=== PATIENT | female | born 1940 | race African-American/Black ===

== ENCOUNTER 2016-09-28 22:46 | Observation (INO) ==
--- NOTE | 2016-09-28 23:36 | PROVIDER DOCUMENTATION ---
HPI-Abdominal Pain/GI Problem - General Chief Complaint: Constipation Stated Complaint: CONSTIPATION Time Seen by Provider: 09/28/16 23:15 Source: patient Allergies/Adverse Reactions: Patient Allergies Allergy/AdvReac Type Severity Reaction Status Date / Time acetaminophen Allergy Intermediate ABDOMINAL Verified 10/05/12 20:30 [From Benadryl PAIN Allergy/Sinus/Headach] diphenhydramine Allergy Intermediate ABDOMINAL Verified 10/05/12 20:30 [From Benadryl PAIN Allergy/Sinus/Headach] diphenhydramine HCl * Allergy Intermediate ABDOMINAL Verified 10/05/12 20:30 [From Benadryl PAIN Allergy/Sinus/Headach] phenylephrine HCl * Allergy Intermediate ABDOMINAL Verified 10/05/12 20:30 [From Benadryl PAIN Allergy/Sinus/Headach] pseudoephedrine HCl * Allergy Intermediate ABDOMINAL Verified 10/05/12 20:30 [From Benadryl PAIN Allergy/Sinus/Headach] Home Medications: Losartan Potassium 100 mg PO DAILY 10/05/12 Sitagliptin Phosphate [Januvia] 100 mg PO DAILY 10/05/12 Atorvastatin Calcium [Lipitor] 40 mg PO QHS 04/29/16 Gabapentin 300 mg PO QHS 04/29/16 Hydrochlorothiazide 12.5 mg PO DAILY 04/29/16 Potassium Chloride E.r. [Klor-Con] 20 meq PO PRN PRN 09/28/16 - History of Present Illness-ABD Nature of Presenting Problems: 76 y/o AAF presents to the ED with constipation. Pt says her bowels have not moved in 4-5 days. Pt states it hurts to sit on her bottom because of the pressure on her rectum. Pt took some Mirlax today but still no BM. Abdominal Pain Onset Location: reports: generalized abdomen, other (rectum) Pain Radiation: reports: no radiation Quality of Pain: reports: tightness Severity in ED: reports: moderate, severe Onset/Duration: reports: 5 days ago Timing: reports: still present Modifying Factors: improves with: nothing Associated Symptoms: reports: constipation. denies: chest pain, loss of appetite, nausea, vomiting, trouble walking Review of Systems - Adult - REVIEW OF SYSTEMS - ADULT Constitutional: denies: chills, fever Eyes: reports: no symptoms reported Ears, Nose, Mouth & Throat: reports: no symptoms reported Cardiovascular: reports: no symptoms reported Respiratory: reports: no symptoms reported Gastrointestinal: reports: abdominal pain, constipation. denies: nausea, rectal bleeding Genitourinary: reports: no symptoms reported Musculoskeletal: reports: no symptoms reported Integumentary: reports: no symptoms reported Neurological: reports: no symptoms reported Psychiatric: reports: no symptoms reported Endocrine: reports: no symptoms reported Hematologic/Lymphatic: reports: no symptoms reported Allergic/Immunologic: reports: no symptoms reported All Other Systems: Reviewed and Negative Past History - Adult - PAST MEDICAL HISTORY-ADULT Review of Records: reports: Old Records Reviewed, Nursing Assessment Review, Medications Reviewed Physical Exam-General - PHYSICAL EXAM-ADULT Initial Vital Signs Reviewed: Yes - CONSTITUTIONAL General Appearance: appears well, alert, no apparent distress - EYES Eyes: PERRL/EOMI, pink conjunctivae - HEAD, EARS, NOSE, MOUTH & THROAT HENMT: moist mucous membranes, normal ENT inspection, TMs normal, pharynx normal - NECK Neck: non-tender, full range of motion, supple, normal inspection - RESPIRATORY Respiratory: lungs clear, normal breath sounds, no pleuratic chest pain, no respiratory distress, no accessory muscle use - CARDIOVASCULAR Cardiovascular: normal peripheral pulses, regular rate, rhythm - GASTROINTESTINAL (ABDOMEN) Abdominal Exam: normal bowel sounds, distended, rigid - MUSCULOSKELETAL Back Exam: normal inspection, no CVA tenderness, no vertebral tenderness Extremity: normal range of motion, non-tender, normal gait, normal inspection - SKIN Integumentary: normal color, normal turgor, warm/dry - NEUROLOGIC Neurologic: grossly normal, no motor/sensory deficits - PSYCHIATRIC Psych/Mental Status: normal mood/affect, normal thought content, normal thought process, oriented x 3 Progress - PLAN OF CARE/RESULTS Progress/Plan/Lab Results: Orders Category Date Time Status Saline Loc DIRECTED Care 09/28/16 23:13 Active Soap Suds Enema DIRECTED Care 09/29/16 00:34 Active NPO Diet 09/28/16 23:[address] ABD/PELVIS W/ IV CONT ONLY [CT] Stat Exams 09/29/16 00:33 Taken FLAT/UPRIGHT ABD/1 VIEW CHEST [RAD] Stat Exams 09/29/16 00:00 Taken AMYLASE [CHEM] Stat Lab 09/28/16 23:27 Completed CBC WITH ELECTRONIC DIFF [HEME] Stat Lab 09/28/16 23:27 Completed COMPREHENSIVE METABOLIC PANEL [CHEM] Stat Lab 09/28/16 23:27 Completed LIPASE [CHEM] Stat Lab 09/28/16 23:[address] W/POSS RFLX CULT [URINALYSIS] Stat Lab 09/29/16 00:55 Completed URINE CULTURE [RM] Routine Lab 09/29/16 01:22 Ordered 0.9% Sodium Chloride Inj [Ns] 1,000 ml Med 09/29/16 00:34 Discontinued IV 999 mls/hr Acyclovir [Zovirax Liquid] Med 09/29/16 00:49 Discontinued 400 mg .ROUTE .STK-MED ONE Bisacodyl [Dulcolax] Med 09/28/16 23:48 Discontinued 10 mg .ROUTE .STK-MED ONE Bisacodyl [Dulcolax] Med 09/28/16 23:46 Discontinued 10 mg NE NOW ONE Docusate Sodium [Colace Liquid] Med 09/29/16 00:35 Discontinued 200 mg PO NOW ONE Methylnaltrexone [Relistor] Med 09/29/16 00:34 Discontinued 12 mg SUBQ NOW ONE Morphine Med 09/29/16 00:33 Discontinued 4 mg IV NOW ONE Promethazine [Phenergan] Med 09/29/16 00:33 Discontinued 12.5 mg IV NOW ONE Sodium Chloride 0.9% Med 09/29/16 00:33 Discontinued 10 ml INJ NOW ONE Vital Signs Temp Pulse Resp BP Pulse Ox 09/28/16 22:52 98.8 F 88 18 137/91 100 acetaminophen [From Benadryl Allergy/Sinus/Headach] Allergy (Intermediate, Verified 10/05/12 20:30) ABDOMINAL PAIN diphenhydramine [From Benadryl Allergy/Sinus/Headach] Allergy (Intermediate, Verified 10/05/12 20:30) ABDOMINAL PAIN diphenhydramine HCl * [From Benadryl Allergy/Sinus/Headach] Allergy ( Intermediate, Verified 10/05/12 20:30) ABDOMINAL PAIN phenylephrine HCl * [From Benadryl Allergy/Sinus/Headach] Allergy (Intermediate , Verified 10/05/12 20:30) ABDOMINAL PAIN pseudoephedrine HCl * [From Benadryl Allergy/Sinus/Headach] Allergy ( Intermediate, Verified 10/05/12 20:30) ABDOMINAL PAIN Losartan Potassium 100 mg PO DAILY 10/05/12 Sitagliptin Phosphate [Januvia] 100 mg PO DAILY 10/05/12 Atorvastatin Calcium [Lipitor] 40 mg PO QHS 04/29/16 Gabapentin 300 mg PO QHS 04/29/16 Hydrochlorothiazide 12.5 mg PO DAILY 04/29/16 Potassium Chloride E.r. [Klor-Con] 20 meq PO PRN PRN 09/28/16 Dietary Diet NPO Start WedSep 28 [id number] Laboratory 09/28/16 09/28/16 09/28/16 23:30 23:27 23:27 WBC 5.53 RBC 3.95 L Hgb 11.3 L Hct 36.1 L MCV 91.4 MCH 28.6 MCHC 31.3 L RDW Std Deviation 14.2 Plt Count 273 MPV 10.0 Immature Gran % (Auto) 0.2 Neut % (Auto) 46.4 Lymph % (Auto) 40.0 [place] % (Auto) 10.3 H Eos % (Auto) 2.9 Baso % (Auto) 0.2 Immature Gran # (Auto) 0.01 Neut # (Auto) 2.57 Lymph # (Auto) 2.21 [place] # (Auto) 0.57 Eos # (Auto) 0.16 Baso # (Auto) 0.01 Sodium 137 Potassium 4.0 Chloride 101 Carbon Dioxide 29 Anion Gap 8 BUN 20 Creatinine 1.1 H Estimated GFR/1.73 m2 48 BUN/Creatinine Ratio 18 Glucose 132 H Calculated Osmolality 278 Calcium 10.4 H Total Bilirubin 0.40 AST 18 ALT 10 Alkaline Phosphatase 75 Total Protein 7.7 Albumin 4.3 Globulin 3.0 Albumin/Globulin Ratio 1.0 Amylase 110 Lipase 38 Urine Source CLEAN CATCH Urine Color YELLOW Urine Clarity CLEAR Urine pH 5.0 Ur Specific [place] 1.020 Urine Protein TRACE A Urine Ketones NEGATIVE Urine Blood NEGATIVE Urine Nitrite NEGATIVE Urine Bilirubin NEGATIVE Urine Urobilinogen NORMAL Urine Microscopic RBC <10 Urine WBC 2+ A Urine Microscopic WBC 10-20 A Ur Epithelial Cells <10 Urine Bacteria 2+ Urine Glucose NEGATIVE - CT/MRI 1 CT Study: Abdomen, Pelvis Impression: Normal (No bowel obstruction per Dr Figueroa) CT Results: Rectal wall thickening, likely rpreents infection, no abscess - CONSULTS/PCP/HOSPITALIST Notification #1 *Consult/PCP/Hospitalist*: Dr Dutton Time Discussed: 03:04 Reason/Comments: admission Consult Disposition: Admit (accepts) Departure - Departure Time of Disposition Order: 03:05 DIAGNOSIS: Constipation Qualifiers: Constipation type: unspecified constipation type Qualified Code(s): K59.00 - Constipation, unspecified Disposition: ADMITTED INPATIENT 09 Certified Medical Emergency: Emergent Condition: Stable Additional Instructions: ED Follow Up Instructions: You have been treated by a care provider in the Emergency Department. These instructions are being provided to you so you can have an understanding of how to care for yourself upon discharge. Upon discharge from the Emergency Department, you are responsible for making arrangements for follow-up care by a physician of your choice. Take all prescribed medications as directed. Return to the Emergency Department immediately for any new or worsening symptoms. You may call the Physician Referral phone number at [phone] to obtain a list of Physicians who are taking new patients. Attestation - Scribe Verification/Attestation Scribe:: Denilson Maguire Acting as Scribe for:: Jensen Sánchez Scribe documention review:: This chart was documented by a scribe and accurately reflects the service the provider performed and the decisions made by the provider. - Physician/ Mid-level Attestation Patient care was provided by Mid-level provider (ROLL HAULER/PA):: Yes Mid-level provider:: Jensen Sánchez Mid-level documentation review:: The Mid-level provider documentation, treatment plan and medical decision making was reviewed by the physician who agrees with all treatment and medical decision making by the MLP.
[2016-09-28 23:45] LABS: MANUAL DIFF NEEDED? NO
[2016-09-28] MEDS ORDERED: DULCOLAX PR ONE (23:46)
[2016-09-28 23:48] LABS: BASO% 0.2 % (0.0-0.8); EOS# 0.16 X1000 (0.0-0.7); EOS% 2.9 % (0.0-10.0); HEMATOCRIT 36.1 % (37.0-47.0); HEMOGLOBIN 11.3 g/dL (12.0-16.0); IMM GRAN# 0.01 X1000 (0.0-0.04); IMM GRAN% 0.2 % (0.0-0.5); LYMPH# 2.21 X1000 (1.2-3.4); MCH 28.6 PG (27-31); MCHC 31.3 g/dL (33-37); MCV 91.4 FL (81-99); MONO# 0.57 X1000 (0.11-0.59); MONO% 10.3 % (1.7-9.3); NEUT% 46.4 % (42.2-75.2); PLT 273 X1000 (130-400); RBC 3.95 XMIL (4.2-5.4)
[2016-09-28] MEDS ORDERED: DULCOLAX ONE (23:48)
[2016-09-29 00:12] LABS: ALBUMIN 4.3 g/dL (3.5-5.0); CALCIUM 10.4 mg/dL (8.8-10.2); TOTAL BILIRUBIN 0.4 mg/dL (0.20-1.00); TOTAL PROTEIN 7.7 g/dL (6.3-8.3)
[2016-09-29] MEDS ORDERED: PHENERGAN IV ONE (00:33)
[2016-09-29] MEDS ORDERED: MORPHINE IV ONE (00:33)
[2016-09-29] MEDS ORDERED: SODIUM CHLORIDE 0.9% INJ ONE (00:33)
[2016-09-29] MEDS ORDERED: NS 1,000 ML IV ONE (00:34)
[2016-09-29] MEDS ORDERED: RELISTOR SUBQ ONE (00:34)
[2016-09-29] MEDS ORDERED: COLACE LIQUID PO ONE (00:35)
[2016-09-29] MEDS ORDERED: ZOVIRAX ONE (00:49)
[2016-09-29 00:59] LABS: URINE SOURCE CLEAN CATCH
[2016-09-29 01:21] LABS: BILIRUBIN URINE NEGATIVE (NEGATIVE); BLOOD URINE NEGATIVE (NEGATIVE); CLARITY CLEAR (CLEAR); COLOR YELLOW; GLUCOSE URINE NEGATIVE (NEGATIVE); LEUKOCYTES URINE 2+ (NEGATIVE); NITRITE URINE NEGATIVE (NEGATIVE); PROTEIN URINE TRACE mg/dL (NEGATIVE); UROBILINOGEN URINE NORMAL
[2016-09-29 01:22] LABS: URINE CULTURE PL NEEDED? YES; URINE EPITHELIAL CELLS <10 /HPF (<10); URINE RBC <10 /HPF (<10)
[2016-09-29] MEDS ORDERED: ZOFRAN IV PRN (03:07)
[2016-09-29] MEDS ORDERED: KLOR-CON PO PRN (03:10)
[2016-09-29] MEDS ORDERED: FLAGYL PO ONE (03:12)
[2016-09-29] MEDS ORDERED: HEPARIN 25,000 UNIT in NS 250 ML IV SCH (05:30)
--- NOTE | 2016-09-29 06:36 | Diag Imaging Result Document ---
PROCEDURE NAME: FLAT/UPRIGHT ABD/1 VIEW CHEST - 09/29/2016 FLAT AND UPRIGHT AND CHEST, THREE VIEWS: COMPARISON: The chest is compared to 05/03/2016. FINDINGS: The patient has a right-sided [id number]. No pneumothorax. There are surgical clips in the left axilla and there has been prior surgery to the right clavicle. No pneumonia. No free air beneath the diaphragm. There is stool throughout the colon. The bowel loops are not dilated. No organomegaly. Mild scoliosis. No abnormal abdominal or pelvic calcifications. IMPRESSION: Constipation.
--- NOTE | 2016-09-29 06:48 | Diag Imaging Result Document ---
PROCEDURE NAME: CT ABD/PELVIS W/ IV CONT ONLY - 09/29/2016 CT ABDOMEN AND PELVIS WITH INTRAVENOUS CONTRAST: TECHNIQUE: Dose-reduction protocol. COMPARISON: No comparison films. FINDINGS: The heart is mildly prominent. The lung bases are clear. The spleen is not enlarged. Normal pancreas, gallbladder, liver, and adrenal glands. A 2.5 cm cyst is found in the mid right kidney. No other renal abnormalities. No hydronephrosis. Moderate atherosclerosis. No aneurysmal dilatation to the abdominal aorta. No bowel obstruction. No inflammation about the cecum. There is only a small amount of stool throughout the colon. There is mild thickening to the rectum. No distinct mass. The uterus has been removed. No pelvic mass. The urinary bladder is moderately distended and appears normal. No enlarged lymph nodes. IMPRESSION: 1. Proctitis. 2. Hysterectomy. 3. Right renal cyst. A preliminary report was given at 1:51 a.m.
[2016-09-29] MEDS: NS 1,000 ML IV SCH ×2 (07:50→19:43)
[2016-09-29] MEDS ORDERED: AUGMENTIN PO SCH (09:00)
[2016-09-29] MEDS ORDERED: JANUVIA PO SCH (09:00)
[2016-09-29] MEDS ORDERED: COZAAR PO SCH (09:00)
[2016-09-29] MEDS ORDERED: COLACE PO SCH (09:00)
[2016-09-29] MEDS ORDERED: HYDROCHLOROTHIAZIDE PO SCH (09:00)
[2016-09-29] MEDS ORDERED: CITRATE OF MAGNESIA PO ONE (09:25)
[2016-09-29] MEDS: DULCOLAX PR SCH ×2 (12:29→16:37)
[2016-09-29 15:47] VITALS: BP 127/60
--- NOTE | 2016-09-29 16:47 | Diag Imaging Result Document ---
PROCEDURE NAME: KUB ABDOMEN - 09/29/2016 AP SUPINE ABDOMEN: COMPARISON: Compared with the previous abdominal series from today (09/29/2016). FINDINGS: There has been interval substantial decrease in retained fecal debris in the colon, consistent with improved constipation. There is gas visible in mostly nondistended colon and small bowel. There is mild gaseous distention of the stomach. There is no other substantial gaseous bowel distention identified. IMPRESSION: Substantial improvement in constipation compared to prior. Mild gaseous distention of stomach. Nonspecific bowel gas pattern otherwise.
--- NOTE | 2016-09-29 17:15 | HISTORY AND PHYSICAL ---
CHIEF COMPLAINT: Constipation. HISTORY OF PRESENT ILLNESS: This is a 76-year-old female who presented to that in the emergency room complaining of constipation. She stated that she had a bowel movement in the past 4-5 days. She does feel some significant pressure in her rectum when sitting. She did take MiraLAX earlier today prior to coming to the emergency room, although she has had no results. She denied any nausea or vomiting, decreased appetite, change in her p.o. intake. PAST MEDICAL HISTORY: Hypertension. Insulin-dependent diabetes. Peripheral neuropathy. Vitamin B12 deficiency. Hyperlipidemia. History of breast cancer and osteoarthritis. SOCIAL HISTORY: She denies alcohol, tobacco, or illicit drug use. ALLERGIES: Tylenol and Benadryl. HOME MEDICATIONS: Losartan 100 mg daily. Hydrochlorothiazide 12.5 daily. Gabapentin 300 at bedtime. Lipitor 40 at bedtime. Januvia 100 daily. Klor-Con 20 p.r.n. REVIEW OF SYSTEMS: A 14 point review of systems is discussed with patient with pertinent positives stated in HPI. She denies chest pain, palpitations, dizziness, syncope, nausea, vomiting, diarrhea, black or bloody vomitus, black or bloody stools, hematuria, dysuria, frequency, urgency. Any shortness of breath, PND, orthopnea. PHYSICAL EXAMINATION: GENERAL: This is a 76-year-old female, sitting up in the bed with no distress. VITAL SIGNS: Blood pressure is 124/62 with a heart rate of 73, respirations are 18, temperature is 97.7 degrees oral with room air saturation 97%. HEENT: Head is normocephalic, atraumatic. Pupils equal, round, react to light. EOMs are intact. Sclerae anicteric. Mucous membranes are moist. NECK: Supple with trachea midline. CARDIOVASCULAR: Regular rate and rhythm, S1, S2 appreciated. GASTROINTESTINAL: Abdomen is soft, nontender, nondistended with bowel sounds in all 4 quadrants. BACK: No CVAT. No spine tenderness. MUSCULOSKELETAL: Good range of motion of joints. NEUROLOGIC: She is alert and oriented x3. EXTREMITIES: No clubbing, cyanosis, or edema. Calves are nontender. Pulses are palpable x4. LABORATORY: WBC is 5.53 with a hemoglobin of 11.3, hematocrit 36.1, platelets of 273,000. Sodium is 137, potassium 4, BUN 20, creatinine 1.1 with a glucose of 132. IMAGING: Abdominal x-ray reveals no bowel obstruction. CT of the abdomen and pelvis reveals proctitis, hysterectomy and a right renal cyst. ASSESSMENT AND PLAN: 1. Constipation. 2. Diabetes mellitus. 3. Hypertension. 4. History of breast cancer. 5. Peripheral neuropathy. PLAN: She has been admitted to the hospital. We will continue with IV hydration. We will continue with her current regimen. We will add Dulcolax rectal suppositories every 6 hours for 3 doses as well as a bottle of Magnesium Citrate. The patient states that she has had 2 small bowel movements. We will repeat Dictated by MILTON Pires for Ancelmo Schultz MD
[2016-09-29] MEDS ORDERED: LIPITOR PO SCH (21:00)
[2016-09-29] MEDS ORDERED: NEURONTIN PO SCH (21:00)
== END 2016-09-29 20:40 | disposition home or self-care (01) ==
LOC: P.ED 22:46 → P.MEDSURG 09-29 03:11
PROVIDERS: ATTEND Family Medicine
DX: K59.00 Constipation, unspecified (principal); R10.84 Generalized abdominal pain; K62.89 Other specified diseases of anus and rectum; I10 Essential (primary) hypertension; E11.9 Type 2 diabetes mellitus without complications; G62.9 Polyneuropathy, unspecified; E53.8 Deficiency of other specified B group vitamins; E78.5 Hyperlipidemia, unspecified; Z85.3 Personal history of malignant neoplasm of breast; M19.90 Unspecified osteoarthritis, unspecified site; Z79.899 Other long term (current) drug therapy
CPT/HCPCS: 74000; 74022; 74177; 80053; 81001; 82150; 82948; 83690; 85025; 87088; 96361; 96372; 96374; 96375; J2270; J2550; J7030; Q9967

== ENCOUNTER 2017-01-29 13:29 | Inpatient (IN) ==
[2017-01-29] MEDS ORDERED: ASPIRIN EC PO SCH (14:45)
[2017-01-29] MEDS ORDERED: D50W SYRINGE IV PRN (14:46)
--- NOTE | 2017-01-29 15:44 | EKG Report ---
Test Performed on : 01/29/2017 3:20:41 PM Test Reason : TIA Blood Pressure : / mmHG Vent. Rate : 075 BPM Atrial Rate : 075 BPM P-R Int : 202 ms QRS Dur : 082 ms QT Int : 404 ms P-R-T Axes : 069 007 036 degrees QTc Int : 451 ms Normal sinus rhythm. Normal ECG When compared with ECG of 30-SEP-2011 06:55, Nonspecific T wave abnormality no longer evident in Lateral leads Confirmed by Benjamin Pinzon MD ([id number]) on 02/01/2017 7:29:44 AM
[2017-01-29 15:53] LABS: MANUAL DIFF NEEDED? NO
[2017-01-29 15:56] LABS: BASO% 0.3 % (0.0-0.8); EOS# 0.15 X1000 (0.0-0.7); EOS% 2.6 % (0.0-10.0); HEMATOCRIT 36.2 % (37.0-47.0); HEMOGLOBIN 11.4 g/dL (12.0-16.0); IMM GRAN# 0.02 X1000 (0.0-0.04); IMM GRAN% 0.3 % (0.0-0.5); LYMPH# 1.63 X1000 (1.2-3.4); LYMPH% 27.9 % (20.5-51.1); MCH 28.5 PG (27-31); MCHC 31.5 g/dL (33-37); MCV 90.5 FL (81-99); MONO# 0.38 X1000 (0.11-0.59); MONO% 6.5 % (1.7-9.3); MPV 9.6 FL (7.4-10.4); NEUT% 62.4 % (42.2-75.2); PLT 254 X1000 (130-400)
[2017-01-29 16:14] LABS: CALCIUM 9.9 mg/dL (8.8-10.2); POTASSIUM 4.5 mmol/L (3.5-5.1); TOTAL BILIRUBIN 0.31 mg/dL (0.20-1.00); TOTAL PROTEIN 7.4 g/dL (6.3-8.3)
--- NOTE | 2017-01-29 16:27 | Diag Imaging Result Document ---
PROCEDURE NAME: MRI BRAIN W/O CONTRAST - 01/29/2017 MRI BRAIN WITHOUT CONTRAST: No contrast administered per request of the referring provider. COMPARISON: 04/30/2016. FINDINGS: There are moderate chronic microvascular ischemic changes. There are 2 new signal abnormalities in the right marc, both of which measure approximately 7 mm in maximum dimension. These have associated restricted diffusion on the diffusion-weighted images, compatible with acute lacunar infarcts. There is an approximately 11 x 3 mm area of restricted diffusion in the left cerebellum, compatible with small acute infarct. There is possibly a tiny area of restricted diffusion at the left occipital lobe measuring approximately 5 mm and possibly representing a tiny acute infarct at this location. There is no evidence of hemorrhage, mass effect, midline shift, or hydrocephalus. IMPRESSION: 1. Moderate chronic microvascular ischemic changes. 2. Two acute lacunar infarcts at right marc. Small acute infarct at left cerebellum. Possible tiny acute infarct at left occipital lobe.
[2017-01-29] MEDS: HUMALOG SUBQ SCH (16:48)
--- NOTE | 2017-01-29 16:56 | Diag Imaging Result Document ---
PROCEDURE NAME: CHEST-2 VIEWS - 01/29/2017 CHEST, 2 VIEWS: COMPARISON: 09/29/2016. FINDINGS: Heart size appears mildly enlarged and may have increased mildly. There is some tortuosity of the thoracic aorta similar to the previous exam. There is mild apical pleural thickening which is stable. The lungs appear clear. There is no pleural effusion or pneumothorax identified. There is midthoracic spondylosis noted. There is a right subclavian central venous catheter again seen with its tip at the superior right atrium. IMPRESSION: Mild cardiomegaly with possible mild interval increase in heart size. No other evidence of acute disease.
[2017-01-29] MEDS: PROTONIX IV SCH (17:19)
[2017-01-29] MEDS: SODIUM CHLORIDE 0.9% INJ SCH (17:19)
[2017-01-29] MEDS: NS 1,000 ML IV SCH (17:19)
[2017-01-29] MEDS: PLAVIX PO SCH (17:25)
[2017-01-29] MEDS ORDERED: LOVENOX SUBQ SCH ×2 (18:00)
[2017-01-29] MEDS ORDERED: LOVENOX SUBQ ONE (18:15)
--- NOTE | 2017-01-29 18:17 | HISTORY AND PHYSICAL ---
CHIEF COMPLAINT: Dizziness, unsteady gait. Ms. Marroquin is a 77-year-old, patient, known case of hypertension, hyperlipidemia, diabetes, history of CVA. The patient was in her usual state of health until last night. The patient claims since she woke up this morning she was not feeling right. Patient was feeling weak, dizzy which she meant vertigo, unsteady gait. She did have some nausea. The patient is very vague and poor historian. Her vertigo was getting worse with position, dull headache, questionable slurred speech. No dysphagia or odynophagia. The patient called our office. We advised her to come. I evaluated the patient. I was concerned about CVA or TIA and because of her risk factors, previous stroke and her presentation and decided to admit the patient for further care. The patient denied any typical chest pain, palpitation, orthopnea, PND. Dull headache. No focal weakness. No urinary or bowel incontinence. No dysarthria. She denied any leg swelling. The patient does have arthritic pain in the knee. No runny nose, stuffy nose, sinus drainage. No diarrhea, blood or mucus in the stool. The patient does have problem with constipation. Patient claims compliance to her medications. No major hypoglycemic episode. No further history available at this time. ALLERGIES: Tylenol, Benadryl. FAMILY HISTORY: Significant for coronary artery disease, CVA, diabetes. PERSONAL HISTORY: Single. Nonsmoker. Denied alcohol or substance abuse. HOME MEDICATIONS: Includes Lipitor, Cozaar, Plavix, Januvia, atenolol, hydrochlorothiazide, Neurontin, vitamin B12. REVIEW OF SYSTEMS: As per HPI. PAST MEDICAL HISTORY: Significant for hypertension, hyperlipidemia, NIDDM, vitamin B12 deficiency, peripheral neuropathy, osteoarthritis, breast cancer, CVA. PHYSICAL EXAMINATION: GENERAL: Elderly patient in mild distress. VITAL SIGNS: On admission blood pressure 145/60, pulse is 81, respiration 16, temperature 98 degrees. SKIN: Senile turgor. No rash or petechiae. HEENT: Head atraumatic, normocephalic. [place] conjunctivae. Anicteric sclerae. Extraocular muscle movement normal. I cannot appreciate any nystagmus. Fundus cannot be penetrated. Ears and nose benign. NECK: Supple. No JVD, thyromegaly or lymphadenopathy. The patient did have a carotid bruit. CHEST: Bilateral good air entry present. Few basal crepitations. No rales. CARDIOVASCULAR: S1 and S2 heard. No gallop or thrill. ABDOMEN: Soft. Nontender. Bowel sounds present. No organomegaly or mass. EXTREMITIES: No cyanosis, clubbing. No acute DVT. MARKETING TECHNOLOGY SPECIALIST: Alert, awake, answering questions fairly well. Cranial nerves 2-12 grossly intact. Cerebellar sign grossly benign. The patient does have good hand guide dog mobility instructor. Muscle power 4/5. The patient does have minimally weaker hand guide dog mobility instructor both the hands. She was able to move all 4 limbs. Uncooperative for detailed neurologic examination. VASCULAR SYSTEM: No acute DVT or acute vascular compromise. MUSCULOSKELETAL SYSTEM: Crepitation in both the knee joints. No acute DVT. The patient's MRI did reveal acute lacunar infarct. There were 2 in the right marc, small acute infarct left cerebellum and possible tiny acute infarct left occipital lobe. Chest x-ray did reveal cardiomegaly. Her EKG noted. LAB DATA: CBC: WBC count 5.84, hemoglobin 11.4, hematocrit 36.2, platelet count 254,000. Electrolytes were fairly benign. CONSIDERATION: Multiple acute lacunar infarct. EKG showing sinus rhythm. I am going to get MRA of the brain. The patient is on Plavix. I am going to add Lovenox. Continue hydration. Other problems includes hypertension, hyperlipidemia, diabetes mellitus, history of breast cancer, fall precaution, GI prophylaxis, hydration. Neurology consult. cc: Jarret Singer MD
[2017-01-29] MEDS: NEURONTIN PO SCH (22:02)
[2017-01-29] MEDS: LIPITOR PO SCH (22:02)
[2017-01-30] MEDS: HUMALOG SUBQ SCH ×5 (01:20→22:16)
[2017-01-30] MEDS: NS 1,000 ML IV SCH ×3 (04:00→22:09)
[2017-01-30] MEDS: LOVENOX SUBQ SCH ×2 (06:55→17:56)
[2017-01-30 07:53] LABS: HDL 43 mg/dL (45-65); LDL 99 mg/dL; TRIGLYCERIDES 122 mg/dL (35-135); VLDL 24 mg/dL
--- NOTE | 2017-01-30 10:19 | PROGRESS NOTE ---
DATE: 01/30/2017 SUBJECTIVE: Ms. Marroquin is doing fair. She denied any new weakness. No high-grade fever or chills. No nausea or vomiting. Denied any chest pain or palpitation. The patient was admitted with CVA, multiple lacunar infarct, known case of hypertension, hyperlipidemia, and IDDM, breast cancer, history of CVA in the past. OBJECTIVE: Vital Signs: Her vital signs reviewed. Neck: Supple. No JVD. Lungs: Bilateral good air entry present. Cardiovascular: S1 and S2 heard. Abdomen: Soft, nontender. Bowel sounds present. Central Nervous System: Alert, awake able to move all 4 limbs. LABORATORY DATA: Her lab data done on admission reviewed, and a.m. blood work ordered for this morning, the results are pending. CONSIDERATIONS: Cerebrovascular accident. MRI did reveal multiple new lacunar infarcts. I started the patient on Lovenox. The patient was on Plavix. Neurology consult requested. I also ordered MRA. Meanwhile, we are doing neurological checks. We will stop aspirin. Risk factor modification. Her other problems include hypertension, hyperlipidemia, and insulin dependent diabetes mellitus, history of breast cancer. Discussed fall precautions. Continue rest of the treatment. The overall plan was discussed with the patient. She is in agreement. cc: Jarret Singer MD
[2017-01-30] MEDS: MIRALAX PO SCH (10:34)
[2017-01-30] MEDS: PLAVIX PO SCH (10:35)
[2017-01-30] MEDS: COZAAR PO SCH (10:35)
[2017-01-30] MEDS: KLOR-CON PO SCH (10:35)
[2017-01-30] MEDS: JANUVIA PO SCH (10:35)
--- NOTE | 2017-01-30 11:28 | PROGRESS NOTE ---
DATE: 01/30/2017 Ms. Marroquin was admitted with acute mental status change. She has multiple lacunar infarcts. Lungs: Are clear. Heart: Sounds are normal. Abdomen: Is soft, nontender. She has good hand electro mechanic at the present time. She gets intermittently confused. Overall condition is unchanged. -2 cc: MD Jarret Rosenberg MD
[2017-01-30] MEDS: PROTONIX IV SCH (15:04)
[2017-01-30] MEDS: SODIUM CHLORIDE 0.9% INJ SCH (15:04)
[2017-01-30 15:39] LABS: URINE MICRO REVIEW NEEDED? NO; URINE SOURCE CLEAN CATCH
[2017-01-30 15:45] LABS: BILIRUBIN URINE NEGATIVE (NEGATIVE); BLOOD URINE NEGATIVE (NEGATIVE); COLOR YELLOW; GLUCOSE URINE NEGATIVE (NEGATIVE); LEUKOCYTES URINE LARGE (NEGATIVE); NITRITE URINE NEGATIVE (NEGATIVE); PH URINE 5.5; PROTEIN URINE NEGATIVE (NEGATIVE); SP GRAVITY URINE 1.015; TURBIDITY URINE CLEAR (CLEAR); UROBILINOGEN URINE NORMAL (NORMAL)
[2017-01-30 15:47] LABS: UR EPITHELIAL CELLS <10 /HPF (<10); URINE BACTERIA NEGATIVE /HPF; URINE CULTURE NEEDED? YES; URINE RBC <10 /HPF (<10)
--- NOTE | 2017-01-30 16:38 | ECHO REPORT ---
ORDER DATE: 01/29/2017 INTERPRETING PHYSICIAN: Dr. De Luna REQUESTING PHYSICIAN: CLINICAL INDICATIONS: This is a 77-year-old female with stroke, diabetes, hypertension, neuropathy, breast cancer. M-MODE MEASUREMENTS: Right ventricle: 2.1 cm. Left ventricle end diastole: 3.8 cm. Left ventricle end systole: 1.7 cm. Posterior wall: 1.0 cm. Interventricular septum: 1.2 cm. Left atrium: 3.5 cm. Aortic root: 2.8 cm. SUMMARY OF 2-DIMENSIONAL IMAGIN. Left ventricular function is normal. Ejection fraction is estimated at 58%. There is mild degree of concentric LVH. The chamber is not dilated. 2. Aortic valve shows some thickening of the cusps. There is no stenosis. There is no regurgitation by color flow mapping. 3. The mitral annulus shows calcification. Leaflets of the mitral valve showed slight restriction to their opening; however, there is no evidence of any significant gradient across the mitral valve. 4. Color flow mapping of mitral valve indicated trivial degree of regurgitation. 5. Pulmonic valve shows trace regurgitation. 6. Tricuspid valve showed mild degree of regurgitation. 7. Inferior vena cava is not dilated. 8. Pulmonary pressure is estimated at 35 mmHg. 9. There is no pericardial effusion, mass or thrombus. 10.The left atrium is at the upper limits of normal. CONCLUSIONS: 1. Normal left ventricular systolic function. Ejection fraction is 58%. 2. Normal right ventricle. 3. Calcification of mitral annulus, dense. No mitral stenosis. 4. There is impaired left ventricular relaxation. 5. Tissue Doppler of septal and lateral mitral annulus averages 4 cm. 6. The left atrial pressure is elevated. 7. The pulmonary systolic pressure is borderline elevated at 35 mmHg. Clinical correlation is recommended. cc: MD Jarret Choudhary MD
[2017-01-30] MEDS: LIPITOR PO SCH (22:10)
[2017-01-30] MEDS: NEURONTIN PO SCH (22:10)
[2017-01-31] MEDS: HUMALOG SUBQ SCH ×4 (06:29→21:43)
[2017-01-31] MEDS: LOVENOX SUBQ SCH ×2 (06:29→17:07)
[2017-01-31] MEDS: PLAVIX PO SCH (08:51)
[2017-01-31] MEDS: MIRALAX PO SCH (08:52)
[2017-01-31] MEDS: KLOR-CON PO SCH (08:52)
[2017-01-31] MEDS: COZAAR PO SCH (08:52)
[2017-01-31] MEDS: JANUVIA PO SCH (08:52)
[2017-01-31] MEDS: NS 1,000 ML IV SCH ×2 (10:29→12:39)
[2017-01-31] MEDS: CIPRO PO SCH ×2 (11:23→21:46)
[2017-01-31] MEDS: SODIUM CHLORIDE 0.9% INJ SCH (14:18)
[2017-01-31] MEDS: PROTONIX IV SCH (14:19)
--- NOTE | 2017-01-31 17:51 | PROGRESS NOTE ---
DATE: 01/23/2017 Ms. Llamas is a 77-year-old female is admitted with multiple lacunar infarcts with acute mental status change. Her urine shows 20 WBCs with large leukocytes, echocardiogram is unremarkable. EF is around 50%. Her vital signs are stable except that the blood pressure is 155/90. She is on losartan 100 mg daily. I personally feel like we need to continue the same dose of the blood pressure medicine on her and she also has maturity onset diabetes. I am going to put her on Cipro 500 mg b.i.d. -4 cc: MD Jarret Roesnberg MD
[2017-01-31] MEDS ORDERED: LABETALOL IV ONE (20:40)
[2017-01-31] MEDS: NEURONTIN PO SCH (21:46)
[2017-01-31] MEDS: LIPITOR PO SCH (21:46)
[2017-01-31] MEDS ORDERED: LABETALOL IV PRN (21:54)
[2017-01-31] MEDS: CARDIZEM 100 MG/NS 100 MG/100 ML IVPB IV SCH (23:00)
[2017-02-01] MEDS: NS 1,000 ML IV SCH ×3 (01:06→15:37)
--- NOTE | 2017-02-01 06:12 | EKG Report ---
Test Performed on : 01/31/2017 8:57:22 PM Test Reason : increased BP and HR Blood Pressure : / mmHG Vent. Rate : 117 BPM Atrial Rate : 090 BPM P-R Int : 000 ms QRS Dur : 078 ms QT Int : 338 ms P-R-T Axes : 000 061 014 degrees QTc Int : 471 ms Atrial fibrillation. with rapid ventricular response. Low voltage QRS Septal infarct , age undetermined Abnormal ECG When compared with ECG of 29-JAN-2017 15:20, (Unconfirmed) Atrial fibrillation. has replaced Sinus rhythm. Vent. rate has increased BY 42 BPM Confirmed by Alberta RODRIGUEZ, Benjamin Rubio ([id number]) on 02/01/2017 7:32:27 AM
[2017-02-01] MEDS: HUMALOG SUBQ SCH ×5 (06:34→21:35)
[2017-02-01] MEDS: LOVENOX SUBQ SCH (06:45)
--- NOTE | 2017-02-01 07:05 | PROGRESS NOTE ---
DATE: 02/01/2017 SUBJECTIVE: Ms. Marroquin is doing better. Yesterday evening, the patient's blood pressure was high and her heart rate went up. The patient was transferred to ICU for close monitoring. Cardiology consult obtained. EKG done revealed atrial fibrillation with rapid ventricular response. The patient claims she was upset with her children as they were arguing with each other. She denied any chest pain. No headache. No new weakness. Denied any bleeding. The patient admitted with multiple lacunar infarct, known case of hypertension, hyperlipidemia, NIDDM, CVA in the past. PHYSICAL EXAMINATION: Vital Signs: Her vital signs noted. Neck: Supple. No JVD. Lungs: Bilateral good air entry present. CVS: S1 and S2. Tachycardia. Abdomen: Soft, globular. Bowel sounds present. Extremities: No cyanosis, clubbing. No acute DVT. MANAGER COMMUNITY OUTREACH: Alert, awake. Able to move all 4 limbs. No new focalities. LAB DATA: Done on , . I am going to check appropriate lab today. Going to get carotid Doppler. Cardiology consult requested. Waiting for neurology evaluation. ASSESSMENT AND PLAN: 1. The patient had multiple lacunar infarcts, atrial fibrillation with rapid ventricular response. Her urine culture was negative. I am going to hold on Cipro. 2. Her new problem includes atrial fibrillation with rapid ventricular response. 3. Multiple lacunar infarcts. 4. Hypertension. 5. Hyperlipidemia. 6. Diabetes mellitus. Overall overall plan discussed at length with the patient and she is in agreement. cc: Jarret Singer MD
[2017-02-01 08:44] LABS: MANUAL DIFF NEEDED? NO
[2017-02-01] MEDS: JANUVIA PO SCH (08:44)
[2017-02-01] MEDS: KLOR-CON PO SCH (08:44)
[2017-02-01] MEDS: PLAVIX PO SCH (08:44)
--- NOTE | 2017-02-01 08:44 | CONSULTATION ---
DATE OF CONSULTATION: 02/01/2017 Ms. Marroquin reports feeling dizzy with an unsteady gait three days ago. She tripped over a piece of furniture. She is certain she did not lose consciousness. She did not notice focal clumsiness or weakness. There was never vision disturbance, slurred speech, headache, memory gaps. She presented to Dr. Singer's office and was admitted to the hospital. Today, she reports she feels completely recovered. She believes that she was much better by the time she got to the hospital and she recovered quickly. She has not had an episode exactly like this before. She reports having "mini stroke" diagnosed several months ago when she was driving and suddenly seemed uncertain about her location. She stopped her car, looked around, got oriented, drove home uneventfully. There was no altered consciousness or memory gap then. She has never had other clinical stroke. There is no history of head injury. She has risk factors including diabetes mellitus, hypertension, dyslipidemia. She was taking her medicines as directed without missing doses recently. In the hospital, blood pressures have ranged systolics 110s to 180s. She has been afebrile. Heart rate has ranged 70s to 80s the 1st few days, and 120s to 140s in the last 2 days. In the hospital, clopidogrel has been added. Her blood sugars have been controlled, 98 and 96 on the last 2 checks. Workup includes brain MRI on the day of admission reported to show possible 2 separate lacunar infarctions in the right marc which were not noted on scan done 04/30/2016 and on the scan this admission, there is some restricted diffusion consistent with acute ischemic change. Echocardiogram shows no source of embolus. Carotid ultrasound has been ordered. She has low dose Lovenox ordered for DVT prophylaxis. On exam, she is awake, alert, attentive, oriented, speaking appropriately, carrying on a good conversation. Speech is not dysarthric. Language function is intact on brief bedside testing. Recent and remote memory are good. I did not test her cognitive function thoroughly. Head and neck are unremarkable. She has full visual marie tested grossly by confrontational finger counting. Extraocular movements are full laterally. She has slightly limited upgaze, typical for age. Facial motility is also little bit diminished bilaterally, without definite focal features. She reports equal pinprick and light touch appreciation across the face. Gag is intact. Tongue is midline. She is edentulous. Shoulder shrug is good bilaterally. I can overcome the left deltoid but this may be mechanical related to her previous surgery for breast cancer management (she reports the findings in the left shoulder are chronic and at baseline today ). Tone is equal in the limbs. She did well on [id number] testing. Sensation is intact to pinprick testing over the hands. She has a stocking pattern of sensory loss symmetrically over the feet. Reflexes are absent to the ankles, 1+ at the knees, 1+ symmetrically at the wrists. Plantar response is silent bilaterally. I did not test her gait. She did well on [id number] testing bilaterally. IMPRESSION: Transient dizziness with quick recovery. Report that this is associated with MRI evidence of acute left pontine infarction suggests that as the reason for her transient dizziness. She does not report any brainstem problems and there is no definite brainstem deficit now. I can overcome the left deltoid which she reports is chronic but could be due to left hemiparesis related to her pontine stroke. I do not find any other evidence of hemiparesis , however. She has had a stable course. Workup is in progress. I do not have any urgent suggestions. I agree with adding antiplatelet medicine, control blood pressure cautiously, control blood sugar and lipids aggressively, continue deep venous thrombosis prophylaxis. Further plans will depend on her clinical course and results of workup. Thanks for asking me to see Ms. Marroquin. cc: MD Jarret Bernardo III, MD MTDD
[2017-02-01] MEDS: COZAAR PO SCH (08:45)
[2017-02-01] MEDS: MIRALAX PO SCH (08:46)
[2017-02-01 08:48] LABS: BASO% 0.2 % (0.0-0.8); EOS# 0.08 X1000 (0.0-0.7); EOS% 1.8 % (0.0-10.0); HEMATOCRIT 31.6 % (37.0-47.0); HEMOGLOBIN 9.9 g/dL (12.0-16.0); LYMPH# 1.47 X1000 (1.2-3.4); LYMPH% 33.2 % (20.5-51.1); MCH 28.6 PG (27-31); MCHC 31.3 g/dL (33-37); MCV 91.3 FL (81-99); MONO# 0.48 X1000 (0.11-0.59); MONO% 10.8 % (1.7-9.3); MPV 9.8 FL (7.4-10.4); PLT 227 X1000 (130-400); RBC 3.46 XMIL (4.2-5.4)
[2017-02-01] MEDS ORDERED: TOPROL XL PO SCH (09:00)
[2017-02-01] MEDS: CARDIZEM 100 MG/NS 100 MG/100 ML IVPB IV SCH (09:03)
[2017-02-01 09:18] LABS: AGAP 10; ALBUMIN 3.3 g/dL (3.5-5.0); ALKALINE PHOSPHATASE 52 U/L (32-104); BUN 9 mg/dL (8-22); CALCIUM 8.4 mg/dL (8.8-10.2); CHLORIDE 109 mmol/L (98-107); CK PROFILE 102 U/L (24-173); COSMO 286; GOT 13 U/L (10-30); GPT 6 U/L (10-36); MAGNESIUM 1.5 mg/dL (1.5-2.7); POTASSIUM 4.2 mmol/L (3.5-5.1); SODIUM 144 mmol/L (136-145); TCO2 25 mmol/L (25-35); TOTAL BILIRUBIN 0.61 mg/dL (0.20-1.00)
--- NOTE | 2017-02-01 09:26 | Diag Imaging Result Document ---
PROCEDURE NAME: CHEST-PORTABLE - 02/01/2017 PORTABLE CHEST X-RAY: COMPARISON: 01/29/2017. FINDINGS: Stable right chest port. Stable mild cardiomegaly. No infiltrates. No pneumothorax or pleural effusion. IMPRESSION: Stable cardiomegaly.
--- NOTE | 2017-02-01 14:53 | CONSULTATION ---
DATE OF CONSULTATION: 02/01/2017 REASON FOR CONSULTATION: Cardiology was consulted for paroxysmal atrial fibrillation. Patient admitted with dizziness and unsteady gait. HISTORY OF PRESENT ILLNESS: Ms. Marroquin is a 77-year-old Afro-[place] lady who has history of hypertension, hyperlipidemia, diabetes, history of CVA, was in her usual state of health. Patient was feeling weak and dizzy and had some unsteady gait and features of vertigo. The patient was admitted from Dr. Singer's office. Brain MRI was done which revealed moderate chronic microvascular changes, 2 acute lacunar infarcts in the right marc, a small acute infarct of left cerebellum, possible tiny infarct of the left occipital lobe. Patient also went into atrial fibrillation, was anticoagulated, started on Plavix and started on a Cardizem drip. From a cardiac standpoint, she does not complain of any chest pain. She noticed some palpitations before she was admitted here. Prior to that, no palpitations. There is no dizziness or syncope. REVIEW OF SYSTEM: A 14-point review of systems was done. Cardiovascular System: As above. Central nervous system: As above. System: There is no dysuria or hematuria. GI: There is no history of nausea, vomiting, diarrhea. There is no history of hematemesis or melena. PAST MEDICAL HISTORY: 1. Hypertension. 2. Hyperlipidemia. 3. History of CVA. 4. Noninsulin dependent diabetes. 5. Peripheral neuropathy. 6. Osteoarthritis. 7. Breast cancer. HOME MEDICATIONS: Include Lipitor, Cozaar, Plavix, Januvia, atenolol, hydrochlorothiazide, Neurontin. She does not smoke. Does not drink. ALLERGIES: She is allergic to acetaminophen, diphenhydramine, phenylephrine, hydrochloride. PHYSICAL EXAMINATION: Vital Signs: Blood pressure was 120/80. Cardiovascular System: Normal jugular venous pressure. There is no thyromegaly. No carotid bruit. First and second heart sounds were heard. There is no S3 gallop. Respiratory System: Normal air entry. There are no crepitations or rhonchi. Abdomen: Soft, nontender. There was no guarding or rigidity. Bowel sounds were heard. Central nervous system: Alert, oriented. Was moving all 4 extremities. Detailed central nervous system examination not performed. DIAGNOSTIC DATA: Telemetry revealed paroxysmal atrial fibrillation. Electrocardiogram revealed normal sinus rhythm when she was admitted. LABORATORY EXAMINATION: Sodium 144, potassium 4.2, BUN 9, creatinine 0.9. Cardiac enzymes negative. ASSESSMENT AND PLAN: Ms. Mally Marroquin is a 77-year-old black lady with a history of hypertension, cerebrovascular accident in the past, diabetes, is admitted with ischemic infarcts with unsteady gait noted, in the cerebellum and in the occipital lobe as well. Her echocardiogram was unremarkable. Carotid Doppler results are pending. RECOMMENDATIONS: 1. She has paroxysmal atrial fibrillation. Currently in sinus rhythm. We will discontinue the Cardizem drip. Put her on Cardizem CD 180 mg a day. Discontinue the beta blockers. She also has hypertension, on Cozaar. We will decrease the Cozaar to 50 mg a day so as to not drop her blood pressure too much. 2. As far as her symptomatology is concerned, she has had new acute infarcts, cerebellar and occipital lobe, nonhemorrhagic. She has paroxysmal atrial fibrillation and needs to be anticoagulated. We will discontinue the Lovenox and put her on Xarelto. We will also discontinue the Plavix. Thank you for the consult. We will follow the hospital course. cc: MD Jarret Edwards MD
[2017-02-01] MEDS: CARDIZEM CD PO SCH (15:00)
[2017-02-01] MEDS ORDERED: SODIUM CHLORIDE 0.9% 10 ML ONE (15:28)
[2017-02-01] MEDS: PROTONIX IV SCH (15:35)
[2017-02-01] MEDS: SODIUM CHLORIDE 0.9% INJ SCH (15:37)
[2017-02-01] MEDS: XARELTO PO SCH (18:55)
[2017-02-01] MEDS: NEURONTIN PO SCH (20:17)
[2017-02-01] MEDS: LIPITOR PO SCH (20:17)
[2017-02-02] MEDS: NS 1,000 ML IV SCH ×2 (02:30→15:46)
[2017-02-02] MEDS: HUMALOG SUBQ SCH ×4 (06:00→21:27)
--- NOTE | 2017-02-02 06:16 | EKG Report ---
Test Performed on : 02/01/2017 6:37:21 PM Test Reason : afib Blood Pressure : / mmHG Vent. Rate : 082 BPM Atrial Rate : 082 BPM P-R Int : 176 ms QRS Dur : 074 ms QT Int : 408 ms P-R-T Axes : 075 056 055 degrees QTc Int : 476 ms Normal sinus rhythm. Nonspecific ST abnormality Abnormal ECG When compared with ECG of 31-JAN-2017 20:57, Sinus rhythm. has replaced Atrial fibrillation. Criteria for Septal infarct are no longer present Confirmed by Alberta RODRIGUEZ, Benjamin Rubio ([id number]) on 02/02/2017 6:50:13 AM
--- NOTE | 2017-02-02 06:45 | PROGRESS NOTE ---
DATE: 02/02/2017 SUBJECTIVE: Ms. Marroquin is feeling better. She denied any headache. No nausea or vomiting. Oral intake is fair. No dysphagia. Her speech is improved. OBJECTIVE: Vital Signs: Noted. Neck: Supple. No JVD. Lungs: Bilateral good air entry present. Cardiovascular: S1 and S2 heard. Abdomen: Soft. No distention. Bowel sounds present. Extremities: No cyanosis, clubbing. No acute DVT. Central Nervous System: Alert, awake, able to move all 4 limbs. LABORATORY STUDIES: I repeated blood work. Hemoglobin was 9.9, hematocrit 31.6, platelet count 227,000, WBC count 4.43. This was done yesterday. Her electrolytes were fairly acceptable. Lipid panel results reviewed. Vitamin B12 and folate were normal. Urinalysis did reveal large leukocyte, but urine culture was negative. CONSIDERATIONS: 1. Multiple lacunar infarcts on MRI. I did a carotid Doppler study order. Results are pending. I also ordered an MRA. Results are pending. 2. Atrial fibrillation, with rapid ventricular response, which was paroxysmal. Now, the patient is in sinus rhythm. The patient is on beta chava and Cardizem. 3. Hyperlipidemia, on Zocor. 4. Dementia. 5. Non-insulin dependant diabetes mellitus. 6. History of breast cancer. PLAN: I am going to transfer patient to a telemetry bed. Continue rest of the treatment. Close observation. Overall plan discussed with the patient. She is in agreement. If clinical condition permits, we will plan discharging patient home soon. cc: Jarret Singer MD
--- NOTE | 2017-02-02 06:57 | EKG Report ---
Test Performed on : 02/02/2017 05:40:27 AM Test Reason : No Order in [employer] Blood Pressure : / mmHG Vent. Rate : 085 BPM Atrial Rate : 085 BPM P-R Int : 170 ms QRS Dur : 078 ms QT Int : 384 ms P-R-T Axes : 070 026 043 degrees QTc Int : 456 ms Normal sinus rhythm. Normal ECG When compared with ECG of 01-FEB-2017 18:37, Nonspecific T wave abnormality, improved in Anterior leads Confirmed by Benjamin Pinzon MD ([id number]) on 02/03/2017 6:43:57 AM
[2017-02-02] MEDS: MIRALAX PO SCH (09:04)
[2017-02-02] MEDS: KLOR-CON PO SCH (09:05)
[2017-02-02] MEDS: JANUVIA PO SCH (09:05)
[2017-02-02] MEDS: CARDIZEM CD PO SCH (09:05)
[2017-02-02] MEDS: COZAAR PO SCH (09:05)
[2017-02-02] MEDS: TYLENOL PO PRN ×2 (12:29→23:07)
--- NOTE | 2017-02-02 13:45 | PROGRESS NOTE ---
DATE: 02/02/2017 Ms. Marroquin is awake, alert, attentive and appropriate. I observed her visiting with her family at the bedside. She reports she has been up walking around without dizziness or unsteadiness. We reviewed her brain imaging findings and I encouraged her to be aggressive with management of her risk factors for cerebrovascular ischemic problems. I do not have any new suggestion today from neurologic standpoint. I agree with Dr. Singer's plans. Thanks for allowing me to follow Ms. Marroquin. cc: MD Jarret Bernardo III, MD
[2017-02-02] MEDS: SODIUM CHLORIDE 0.9% INJ SCH (15:46)
[2017-02-02] MEDS: PROTONIX IV SCH (15:46)
[2017-02-02] MEDS: XARELTO PO SCH (16:35)
[2017-02-02] MEDS: LIPITOR PO SCH (20:40)
[2017-02-02] MEDS: NEURONTIN PO SCH (20:40)
[2017-02-03] MEDS: NS 1,000 ML IV SCH ×2 (00:12→14:22)
[2017-02-03] MEDS: HUMALOG SUBQ SCH ×2 (06:23→12:41)
[2017-02-03] MEDS ORDERED: DULCOLAX PR ONE (07:01)
--- NOTE | 2017-02-03 07:27 | PROGRESS NOTE ---
DATE: 02/03/2017 SUBJECTIVE: Ms. Marroquin is doing better. She had a dull headache. No nausea or vomiting. No chest pain. She was complaining of being constipated. No tachycardia. Ambulating well. OBJECTIVE: Her vital signs noted. The patient was on beta chava, which she is not taking now. I am going to add a small dose of beta chava. The patient is on Cardizem which she is tolerating well. Vital signs noted. Neck supple. No JVD. Lungs: A few basal crepitations. Heart: S1 and S2 heard. Abdomen soft, globular. Bowel sounds present. Extremities: No cyanosis, clubbing. No acute DVT. DIRECTOR TRANSLATION: Alert, awake, able to move all 4 limbs. CONSIDERATION: 1. Multiple lacunar infarct. 2. Atrial fibrillation with rapid ventricular response, currently in sinus rhythm. Preliminary report, as the photographic technician told cardiology nurse practitioner, was significant carotid stenosis. I do not have official result. The patient did have significant carotid stenosis before. She was evaluated by Dr. Salinas. I am going to get a consultation with Dr. Salinas before discharging her home today. 3. Constipation. We will try Dulcolax suppository. 4. Hypertension. 5. Hyperlipidemia. I offered the patient home health. The patient understood the importance but refused. I am planning to discharge patient home today if Dr. Salinas does not decide to do any surgical intervention soon. Overall plan discussed with the patient. She is in agreement. Again, patient is on Xarelto, so it may be delayed for a few days. cc: Jarret Singer MD
[2017-02-03 07:58] LABS: MANUAL DIFF NEEDED? NO
[2017-02-03 08:02] LABS: BASO% 0.2 % (0.0-0.8); EOS# 0.13 X1000 (0.0-0.7); EOS% 3.1 % (0.0-10.0); HEMATOCRIT 29.5 % (37.0-47.0); HEMOGLOBIN 9.3 g/dL (12.0-16.0); LYMPH# 1.53 X1000 (1.2-3.4); LYMPH% 36.6 % (20.5-51.1); MCH 28.7 PG (27-31); MCHC 31.5 g/dL (33-37); MONO# 0.44 X1000 (0.11-0.59); MONO% 10.5 % (1.7-9.3); MPV 9.6 FL (7.4-10.4); NEUT% 49.6 % (42.2-75.2); PLT 215 X1000 (130-400); RBC 3.24 XMIL (4.2-5.4)
[2017-02-03 08:20] LABS: AGAP 9; ALBUMIN 3.4 g/dL (3.5-5.0); ALKALINE PHOSPHATASE 55 U/L (32-104); BUN 6 mg/dL (8-22); CHLORIDE 109 mmol/L (98-107); COSMO 285; GOT 47 U/L (10-30); GPT 28 U/L (10-36); MAGNESIUM 1.7 mg/dL (1.5-2.7); SODIUM 144 mmol/L (136-145); TCO2 26 mmol/L (25-35); TOTAL PROTEIN 6.3 g/dL (6.3-8.3)
[2017-02-03] MEDS ORDERED: TOPROL XL PO SCH (09:00)
[2017-02-03] MEDS: MIRALAX PO SCH (09:22)
[2017-02-03] MEDS: COZAAR PO SCH (09:23)
[2017-02-03] MEDS: JANUVIA PO SCH (09:23)
[2017-02-03] MEDS: CARDIZEM CD PO SCH (09:23)
[2017-02-03] MEDS: KLOR-CON PO SCH (09:23)
--- NOTE | 2017-02-03 10:12 | Carotid Study ---
DATE: 02/01/2017 PROCEDURE: Bilateral duplex and color flow imaging of the carotid arteries was performed using the [employer] Vivid E9 ultrasound system with a 9L-D transducer. REFERRING PHYSICIAN: Jarret Singer MD. INTERPRETING PHYSICIAN: Guzman Ferrari MD. TECH: [place]. INDICATIONS: CVA. Previous study 04/29/2016. OBSERVED DATA RIGHT LEFT Brachial Blood Pressure Carotid Pulse Bruits: Carotid/Sub DIAGRAM OF ULTRASOUND IMAGING R L RIGHT INT EXT INT EXT LEFT Steven (cm/s) Steven (cm/s) Subclavian 57/0 Subclavian 59/0 CCA Proximal 49/13 CCA Proximal 62/12 CCA Distal 178/40 CCA Distal 51/15 Bulb 190/31 Bulb 56/14 ICA Proximal 56/13 ICA Proximal 35/12 ICA Mid 66/29 ICA Mid 41/16 ICA Distal 62/30 ICA Distal 50/23 ECA 55/6 ECA 56/6 Vertebral 42/15 A Vertebral 28/7 A ICA/CCA Ratio 0.31 ICA/CCA Ratio 0.8 % Stenosis 0-39 % Stenosis 0-39 FINDINGS: There appears to be visually severe stenosis in the right carotid bulb and the common carotid artery on the right. This limits the ability to interpret the stenosis given the elevated velocities through this area. On the left side, there appears to be irregular calcific plaques but at this time no hemodynamically significant flow-limiting stenosis is noted. PHYSICIAN INTERPRETATION: Limited study secondary to the elevated velocities at the distal common carotid artery on the right, though there appears to be visual stenosis with severe disease at the level of the right common carotid into the right carotid bulb. This is not reflected in the stenosis noted in the internal carotid artery, but again the elevated velocities likely obscure the ability to interpret the internal carotid artery on the right side. The left side visually has irregular calcific plaques, but by strict velocity criteria does not have a hemodynamically significant flow-limiting stenosis. Given these findings, I would recommend continued surveillance. The patient may need CT angiography to evaluate the common carotid more fully, but when compared to previous study, this is essentially stable. cc: MD Jarret Giordano MD [facility]
[2017-02-03] MEDS ORDERED: PROTONIX PO SCH (11:15)
[2017-02-03 12:21] VITALS: BP 130/62
[2017-02-03] MEDS: TYLENOL PO PRN (15:25)
--- NOTE | 2017-02-03 15:59 | CONSULTATION ---
DATE OF CONSULTATION: 02/03/2017 CHIEF COMPLAINT: Abnormal carotid study. HISTORY: This is a 77-year-old, black female who was admitted with some unsteadiness. Her workup included an MRI and carotid imaging. The MRI showed some areas of infarct in the lacunar area at the marc and in the left cerebellum, even the left occipital lobe. These could be the cause of her unsteadiness. Carotid imaging shows plaque in the right side that is approaching hemodynamic consequence. There is no significant stenosis on the left. She has been on antiplatelet therapy. She also has atrial fibrillation that has been treated during her hospitalization. HOME MEDICATIONS: Lipitor, Cozaar, Plavix, Januvia, atenolol, hydrochlorothiazide, Neurontin and vitamin B12. ALLERGIES: Benadryl and Tylenol. SOCIAL HISTORY: She is a nonsmoker. She is single. She denies alcohol or substance abuse. FAMILY HISTORY: Pertinent for coronary disease and diabetes. REVIEW OF SYSTEMS: General: Pertinent for her unsteadiness. Vital Signs: In examining her today she is afebrile, heart rate 79 irregular, respiratory rate 16, blood pressure 130/62. There is a right carotid bruit present. No cervical adenopathy. Lungs: Bilateral breath sounds. Heart: Regular rate and rhythm. Abdomen: Soft. She has good strength in the upper and lower extremities. ASSESSMENT: The source of her infarcts could be small vessel disease or small emboli as a result of her atrial fibrillation. I do not think carotid stenosis is the source or cause of her infarcts. The plaque disease could be the source of emboli. Her primary stenosis is on the right side. I do not think it is severe enough to consider intervention at this point. I do agree with anticoagulation. I will simply have her return in followup in 3 months and we will re-image her neck arteries at some point to watch for progressive disease on the right. It is fine with me if she is discharged, but I would like to see her back in followup in 3 months. cc: MD Jarret Kennedy MD
--- NOTE | 2017-02-04 07:48 | DISCHARGE SUMMARY ---
ADMISSION DATE: 01/29/2017 DISCHARGE DATE: 02/04/2017 FINAL DISCHARGE DIAGNOSES: 1. Multiple cerebrovascular accidents due to multiple lacunar infarct involving Bones, cerebellum. 2. Carotid stenosis. 3. Paroxysmal atrial fibrillation. 4. Hypertension. 5. Hyperlipidemia. 6. Ycq-flgsndh-pvcrebqby diabetes mellitus. 7. Multi-infarct dementia. 8. History of breast cancer. HISTORY AND HOSPITAL COURSE: Ms. Marroquin is a 77-year-old, patient admitted with dizziness and unsteady gait. Found to have acute multiple lacunar infarcts. Patient admitted. Patient was treated with IV hydration, symptomatic treatment, risk factor management. Hospital course complicated by atrial fibrillation with rapid ventricular response. Cardiology and Neurology consult obtain. Recommendations reviewed. The patient was transferred to ICU because of her at atrial fibrillation with rapid VR. Her clinical condition stabilized and improved. Carotid Doppler did reveal significant stenosis in the internal carotid artery. Surgical consult obtained with Dr. Salinas. He recommended followup in 3 months. Overall, the patient clinical condition stabilized, improved. Her gait improved. The patient received maximum benefit of hospitalization and we decided to discharge patient home. Advised her not to take her Plavix, atenolol. Decrease her Cozaar from 100 to 50 mg. started her on Cardizem CD 180 mg a day, also Toprol-XL 12.5 mg daily, Xarelto 20 mg p.o. daily. She will continue her Lipitor, Januvia. Followup in the office in 5 days. Fall precautions. Discussed risk of anticoagulation with Xarelto. Patient understood and agreed. DIAGNOSTIC DATA: Her lab data revealed hemoglobin 9.3, hematocrit 29.5, WBC count 4.18, platelet 215,000. Electrolytes were fairly benign. Total cholesterol 166, LDL 99, triglyceride 122, vitamin B12 more than 2000, folate 11.4. Urinalysis did reveal 10-20 WBC but urine culture was negative. Chest x-ray, stable cardiomegaly. MRI of the brain revealed moderate chronic microvascular ischemic changes, 2 acute blood lacunar infarct at the right marc. Small acute infarct at the left cerebellum. Possible tiny acute infarct at left occipital lobe. DISCHARGE INSTRUCTIONS: Encouraged low-fat low-cholesterol diet. Fall precautions. Monitor blood pressure and heart rate at home. Follow up with me in 5 days. I did offered patient home health but patient refused. cc: Jarret Singer MD
== END 2017-02-03 17:30 | disposition home or self-care (01) ==
LOC: DIRADM → OBSVTOIN 13:29 → 3N 14:25 → ICU 01-31 22:34 → 3S 02-02 07:42
PROVIDERS: ADMIT Internal Medicine; ATTEND Internal Medicine

== ENCOUNTER 2017-02-16 09:35 | Inpatient (IN) ==
[2017-02-16 10:16] LABS: MANUAL DIFF NEEDED? NO
[2017-02-16 10:25] LABS: BASO% 0.4 % (0.0-0.8); EOS# 0.11 X1000 (0.0-0.7); EOS% 2.3 % (0.0-10.0); HEMATOCRIT 37.9 % (37.0-47.0); LYMPH# 1.97 X1000 (1.2-3.4); MCH 28.6 PG (27-31); MCHC 31.7 g/dL (33-37); MCV 90.5 FL (81-99); MONO# 0.34 X1000 (0.11-0.59); MONO% 7.1 % (1.7-9.3); MPV 9.7 FL (7.4-10.4); NEUT% 49.2 % (42.2-75.2); PLT 331 X1000 (130-400); RBC 4.19 XMIL (4.2-5.4)
[2017-02-16 10:34] LABS: INR 1.02; PROTIME 10.7 Seconds (9.2-11.7); PTT 24.9 Seconds (22.0-36.0)
[2017-02-16 10:46] LABS: AGAP 13; ALBUMIN 4.1 g/dL (3.5-5.0); ALKALINE PHOSPHATASE 75 U/L (32-104); BUN 16 mg/dL (8-22); CALCIUM 9.7 mg/dL (8.8-10.2); CHLORIDE 97 mmol/L (98-107); COSMO 279; GOT 13 U/L (10-30); GPT 7 U/L (10-36); POTASSIUM 4.3 mmol/L (3.5-5.1); SODIUM 138 mmol/L (136-145); TCO2 28 mmol/L (25-35); TOTAL BILIRUBIN 0.55 mg/dL (0.20-1.00); TOTAL PROTEIN 7.9 g/dL (6.3-8.3)
[2017-02-16 10:56] LABS: URINE MICRO REVIEW NEEDED? NO; URINE SOURCE CLEAN CATCH
[2017-02-16 11:05] LABS: BILIRUBIN URINE NEGATIVE (NEGATIVE); BLOOD URINE NEGATIVE (NEGATIVE); COLOR YELLOW; GLUCOSE URINE NEGATIVE (NEGATIVE); LEUKOCYTES URINE LARGE (NEGATIVE); NITRITE URINE NEGATIVE (NEGATIVE); PROTEIN URINE NEGATIVE (NEGATIVE); SP GRAVITY URINE 1.018; TURBIDITY URINE CLEAR (CLEAR); UROBILINOGEN URINE NORMAL (NORMAL)
[2017-02-16 11:06] LABS: UR EPITHELIAL CELLS <10 /HPF (<10); URINE BACTERIA NEGATIVE /HPF; URINE CULTURE NEEDED? YES; URINE RBC <10 /HPF (<10)
--- NOTE | 2017-02-16 11:15 | Diag Imaging Result Doc PS360 ---
EXAM: HEAD W/O CONTRAST HISTORY: stroke like symptoms TECHNIQUE: CT of the head without contrast COMMENT: There are calcifications in the vertebral basilar and internal carotid arteries. There are lucencies throughout the white matter both hemispheres particularly around the frontal horns and atria of the lateral ventricles. There is no evidence of bleed mass effect or abnormal extra-axial fluid collection. The calvarium is intact. Compared to 02/12/2017 there has been no significant change. IMPRESSION: Chronic ischemic changes and atherosclerosis. Stable since 02/12/2017. Electronically signed by Alber Walter 02/16/2017 11:13 AM
--- NOTE | 2017-02-16 11:27 | PROVIDER DOCUMENTATION ---
This chart was entered by Renetta Nicole Scribe, acting as scribe for Geovanny Garcia MD. HPI-General Adult - General Chief Complaint: Stroke-Like Symptoms Stated Complaint: STROKE LIKE SX Time Seen by Provider: 02/16/17 09:50 Source: patient, family Allergies/Adverse Reactions: Patient Allergies Allergy/AdvReac Type Severity Reaction Status Date / Time diphenhydramine Allergy Intermediate ABDOMINAL Verified 10/05/12 20:30 [From Benadryl PAIN Allergy/Sinus/Headach] diphenhydramine HCl * Allergy Intermediate ABDOMINAL Verified 10/05/12 20:30 [From Benadryl PAIN Allergy/Sinus/Headach] phenylephrine HCl * Allergy Intermediate ABDOMINAL Verified 10/05/12 20:30 [From Benadryl PAIN Allergy/Sinus/Headach] pseudoephedrine HCl * Allergy Intermediate ABDOMINAL Verified 10/05/12 20:30 [From Benadryl PAIN Allergy/Sinus/Headach] Home Medications: Home Medication List Medication Instructions Recorded Confirmed Last Taken Type Sitagliptin Phosphate [Januvia] 100 mg PO DAILY 10/05/12 02/12/17 02/11/17 09: 00 History 100 MG Atorvastatin Calcium [Lipitor] 40 mg PO QHS 04/29/16 02/12/17 02/11/17 20:00 History 40 MG Hydrochlorothiazide 12.5 mg PO DAILY 04/29/16 02/12/17 02/11/17 09:00 History 12.5 MG Diltiazem C.d. [Cardizem Cd] 180 mg PO DAILY capsule 02/03/17 02/12/17 09:00 Rx 180 MG Metoprolol Succinate [Toprol Xl] 12.5 mg PO DAILY #15 tab.er.24h 02/03/1702/11/17 09:00 Rx 12.5 MG Rivaroxaban [Xarelto] 20 mg PO WSUPPER tablet 02/03/17 02/12/17 02/11/17 20:00 Rx 20 MG Gabapentin [Neurontin] 300 mg PO TID 02/08/17 02/12/17 02/11/17 20:00 History 300 MG Aspirin [Aspirin EC] 81 mg PO DAILY 02/12/17 02/12/17 02/11/17 09:00 History 81 MG Sulfamethoxazole/Tmp D.s. [Septra 1 each PO BID #10 tablet 02/16/17 Unknown Rx Ds] - History of Present Illness -Gen Adult Nature of Presenting Problems: PT IS A 77YOF PRESENTING TO THE ED C/O AMS. PT HAS A HISTORY OF MULTIPLE TIA'S AND THIS MORNING FAMILY REPORTED PT WAS HAVING PROBLEMS AMBULATING, SHE WAS APHASIC AND HERE LEFT SIDE WAS WEAKER THAN THE RIGHT SIDE. PT IS STILL EXPERIENCING SOME DYSPHASIA AND VERY MINOR LEFT FACIAL DROOPING. PT HAS BEEN SEEN 3 PREVIOUS TIMES FOR SAME COMPLAINTS THIS MONTH AND AT TIME OF EXAM PTS SYMPTOMS HAVE ALMOST COMPLETELY RESOLVED. NO OTHER COMPLAINTS AT THIS TIME. Location of Pain/Injury: reports: face, upper extremity, lower extremity (LEFT SIDED) Pain Radiation: reports: no radiation Quality of Pain: reports: fullness Severity: reports: moderate Onset/Duration: reports: just prior to arrival Timing: reports: improving Context/Activities at Onset: reports: light activity Modifying Factors: improves with: nothing Associated Symptoms: reports: fatigue, loss of appetite, malaise, sensory/motor loss, weakness, trouble walking. denies: anxiety, back/neck pain, chest pain, headaches, sinus congestion/drainage, syncope, vomiting Similar Symptoms Previously?: Yes Recently seen or treated by another doctor?: Yes (2 PREVIOUS EPISODES SEEN IN ED ) Review of Systems - Adult - REVIEW OF SYSTEMS - ADULT Constitutional: reports: see HPI, fatique, other (EXTREMEDLY LETHARGIC). denies : fever Eyes: reports: no symptoms reported Ears, Nose, Mouth & Throat: reports: no symptoms reported Cardiovascular: reports: no symptoms reported Respiratory: reports: no symptoms reported Gastrointestinal: reports: no symptoms reported Genitourinary: reports: no symptoms reported Musculoskeletal: reports: see HPI, muscle weakness. denies: joint pain, neck pain Integumentary: reports: no symptoms reported Neurological: reports: see HPI, loss of balance, numbness, slurred speech. denies: ataxia, tremors Psychiatric: reports: no symptoms reported Endocrine: reports: no symptoms reported Hematologic/Lymphatic: reports: no symptoms reported Allergic/Immunologic: reports: no symptoms reported All Other Systems: Reviewed and Negative Past History - Adult - PAST MEDICAL HISTORY-ADULT Review of Records: reports: Old Records Reviewed, Nursing Assessment Review, Medications Reviewed, Social history reviewed & non-contributory. Major Childhood Illnesses: reports: denies history Cardiovascular: reports: HTN Respiratory: reports: denies history Gastrointestinal: reports: denies history Obstetrical/Gynecological: reports: denies history Genitourinary: reports: denies history Musculoskeletal: reports: denies history Neurological: reports: TIA Endocrine/Immune: reports: Diabetes Other Conditions: reports: other cancer (breast) - PRIOR SURGERIES/PROCEDURES Surgical/Procedure History: reports: hysterectomy, breast - IMMUNIZATION STATUS Childhood Immunizations: See Nurse Assessment Flu Vaccine: See Nurse Assessment - FAMILY HISTORY Family History: reviewed, not pertinent - SOCIAL HISTORY Smoking: denies, non-smoker Substance Use: none/never, denies Living Situation: family Physical Exam-General - PHYSICAL EXAM-ADULT Initial Vital Signs Reviewed: Yes - CONSTITUTIONAL General Appearance: alert, moderate distress, severe distress, lethargic, slow to respond. negative: appears well - EYES Eyes: PERRL/EOMI, pink conjunctivae - HEAD, EARS, NOSE, MOUTH & THROAT HENMT: normocephalic/atraumatic, moist mucous membranes, normal ENT inspection, TMs normal, pharynx normal - NECK Neck: non-tender, full range of motion, supple, normal inspection - RESPIRATORY Respiratory: chest non-tender, lungs clear, normal breath sounds, no pleuratic chest pain, no respiratory distress, no accessory muscle use - CARDIOVASCULAR Cardiovascular: normal peripheral pulses, regular rate, rhythm, no edema, no gallop, no JVD, no murmur - GASTROINTESTINAL (ABDOMEN) Abdominal Exam: normal bowel sounds, non tender, soft, no organomegaly, no pulsatile mass - LYMPHATIC Lymphatic: no adenopathy - MUSCULOSKELETAL Back Exam: normal inspection, no CVA tenderness, no vertebral tenderness Extremity: normal range of motion, non-tender, no pedal edema, no calf tenderness, normal capillary refill, pelvis stable, other (WEAKNESS ON LEFT SIDE ). 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 negative: normal mood/affect Progress - PLAN OF CARE/RESULTS Progress/Plan/Lab Results: Vital Signs - 8 hr 02/16/17 09:44 Pulse Rate 69 Respiratory Rate 18 Blood Pressure 160/101 O2 Sat by Pulse Oximetry 99 Orders Category Date Time Status Cardiac Monitoring DIRECTED Care 02/16/17 10:08 Active Finger Stick Blood Sugar (ED) DIRECTED Care 02/16/17 10:08 Active Saline Loc NOW Care 02/16/17 10:08 Active CHEST-PORTABLE [RAD] Stat Exams 02/16/17 10:08 Ordered HEAD W/O CONTRAST [CT] Stat Exams 02/16/17 10:08 Ordered CBC WITH ELECTRONIC DIFF [HEME] Stat Lab 02/16/17 10:05 Results COMPREHENSIVE METABOLIC PANEL [CHEM] Stat Lab 02/16/17 10:05 Received PROTIME WITH INR [COAG] Stat Lab 02/16/17 10:05 Received PTT [COAG] Stat Lab 02/16/17 10:05 Received TROPONIN T Stat Lab 02/16/17 10:05 Received URINALYSIS W/POSS RFLX CULT-1 [URINALYSIS] Stat Lab 02/16/17 10:08 Uncollected URINE DRUG SCREEN Stat Lab 02/16/17 10:08 Uncollected EKG [EKG] Stat Ther 02/16/17 10:08 Ordered Result Diagrams: 02/16/17 10:05 02/16/17 10:05 Departure - Departure Time of Disposition Decision: 11:20 DIAGNOSIS: TIA (transient ischemic attack) Qualifiers: Transient cerebral ischemia type: unspecified Qualified Code(s): G45.9 - Transient cerebral ischemic attack, unspecified UTI (urinary tract infection) Qualifiers: Urinary tract infection type: acute cystitis Disposition: HOME 01 Certified Medical Emergency: Emergent Condition: Fair Prescriptions: Sulfamethoxazole/Tmp D.s. [Septra Ds] 1 each PO BID #10 tablet Referrals and Follow-Ups: None,PCP [Primary Care Provider] - - Critical Care Note This patient required my direct & personal management of CC.: No This chart was documented by the indicated scribe, (Renetta Nicole Scribe) and accurately reflects the services I performed and decisions made by me, Geovanny Garcia MD, as attested by the provider's signature.
[2017-02-16 12:16] LABS: UR AMPHETAMINES QUAL NONE DETECTED (NONE DETECT); UR BARBITUATES QUAL NONE DETECTED (NONE DETECT); UR BENZODIAZEPIN QUAL NONE DETECTED (NONE DETECT); UR CANNABINOIDS QUAL NONE DETECTED (NONE DETECT); UR COCAINE QUAL NONE DETECTED (NONE DETECT); UR METHADONE QUAL NONE DETECTED (NONE DETECT); UR OPIATES QUAL NONE DETECTED (NONE DETECT); UR OXYCODONE QUAL NONE DETECTED (NONE DETECT); UR PCP QUAL NONE DETECTED (NONE DETECT)
[2017-02-16] MEDS ORDERED: ROCEPHIN 1 GM/NS 1 GM/50 ML IVPB IV ONE ×2 (13:02→16:00)
[2017-02-16] MEDS ORDERED: NS 1,000 ML IV SCH (13:02)
[2017-02-16] MEDS ORDERED: DULCOLAX PR ONE (17:19)
--- NOTE | 2017-02-16 17:41 | HISTORY AND PHYSICAL ---
CHIEF COMPLAINT: Left-sided weakness. HISTORY OF PRESENT ILLNESS: Ms. Marroquin, 77-year-old patient, known case of hypertension, hyperlipidemia and IDDM, multiple TIAs. The patient claimed she was not able to sleep well last night. The patient claims she had visual and auditory hallucinations. When she woke up the patient had some nausea. She vomited twice. The patient was not able to speak well. She had left-sided weakness, some aphasia, unsteady gait. According to family the patient had left-sided facial droop which resolved. The patient was brought to the emergency room. Evaluated by ER physician. Patient found to have UTI. Last few days patient had multiple ER visits with similar episode. The patient had workup done in the form of carotid Doppler, echocardiogram, MRI. MRI did reveal multiple lacunar infarcts. I am concerned about her risk factor, multiple episodes suggestive of TIA and major stroke. I decided to admit the patient for further care. Currently the patient is doing better. Her speech is baseline. She denied any focal weakness. No facial droop. She was complaining of dull headache. Patient was on Plavix prior to last hospitalization but that time patient had atrial fibrillation with rapid VR. Willow Analyst stopped her Plavix and patient was started on Xarelto. Her carotid Doppler did reveal some carotid abnormality. I did surgical evaluation. Surgeon is going to reevaluate the patient in 3 months. The patient denied any abdominal pain. The patient vomited twice. No hematemesis or melena. Complaining of being constipated. No typical chest pain or palpitation. No leg swelling. The patient does have problem with dementia. The patient is very vague and poor historian. ALLERGY: Benadryl. PAST MEDICAL HISTORY: Hypertension, hyperlipidemia, NIDDM lacunar infarct, breast cancer, osteoarthritis, vitamin B12 deficiency, peripheral neuropathy. PERSONAL HISTORY: Single. Nonsmoker. Denied alcohol or substance abuse. FAMILY HISTORY: Significant for hypertension, diabetes and CVA. REVIEW OF SYSTEMS: As per HPI. HOME MEDICATION: Includes aspirin, Xarelto, Neurontin, hydrochlorothiazide, Dyazide, Cozaar, Januvia. The patient was not taking her Xarelto. Patient is on Toprol-XL. PHYSICAL EXAMINATION: GENERAL: Elderly female patient in no acute distress. VITAL SIGNS: Blood pressure 144/87, pulse 84, respirations 17, temperature 97.9 degrees. SKIN: Senile turgor. No rash or petechiae. HEENT: Head atraumatic, normocephalic. [place] conjunctivae. [place] sclerae. Extraocular muscle movement normal. Fundus cannot be penetrated. Good oral hygiene. No tonsillopharyngeal congestion or exudate. Ears and nose benign. NECK: Supple. No JVD, thyromegaly or lymphadenopathy. CHEST: Bibasilar crepitation. No rales. CARDIOVASCULAR: S1 and S2 heard. No gallop or thrill. ABDOMEN: Soft, globular. Bowel sounds present. No organomegaly or mass. EXTREMITIES: No cyanosis, clubbing. No acute DVT. 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 No facial asymmetry. ADMISSION LAB DATA: Revealed hemoglobin 12, hematocrit 37.9, WBC count 4.81, platelet count 331,000. PT/INR 10.02, PTT 24.9. Electrolytes fairly benign. Urinalysis. Large leukocyte, 10- 20 WBC. Urine bacteria negative. Urine drug screen was negative. CONSIDERATION: Patient admitted with altered mental status. She found to have urinary tract infection. Symptoms suggestive of recurrent transient ischemic attack. I am concerned about major stroke. The patient recently had lacunar infarct. Carotid Doppler suggestive of carotid stenosis. Evaluated by surgeon. They want to wait for 3 months. Hypertension, paroxysmal atrial fibrillation, currently in sinus rhythm. Hyperlipidemia on Lipitor, NIDDM, history of breast cancer. PLAN: Admit the patient. IV hydration. Telemetry monitoring. Neuro check. IV antibiotic. Neurology consult. Overall plan discussed with the patient. Fall precaution. Will treat her constipation symptomatically. cc: Jarret Singer MD
[2017-02-16] MEDS: NS 1,000 ML IV SCH (17:50)
[2017-02-16] MEDS: TYLENOL PO PRN (18:06)
[2017-02-16] MEDS: ASPIRIN EC PO SCH (18:18)
[2017-02-16] MEDS: CARDIZEM CD PO SCH (18:18)
[2017-02-16] MEDS: MIRALAX PO SCH (18:18)
[2017-02-16] MEDS: COZAAR PO SCH (18:18)
[2017-02-16] MEDS: NEURONTIN PO SCH (20:57)
[2017-02-16] MEDS: LIPITOR PO SCH (20:58)
[2017-02-17] MEDS: NS 1,000 ML IV SCH ×3 (00:56→14:30)
[2017-02-17 06:56] LABS: MANUAL DIFF NEEDED? NO
--- NOTE | 2017-02-17 07:07 | PROGRESS NOTE ---
DATE: 02/17/2017 SUBJECTIVE: Ms. Marroquin is doing better. She denied any focal weakness. No fever or chills. No seizure-type episode. Denied any nausea or vomiting. OBJECTIVE: Vital Signs: Her vital signs noted. Neck: Supple. No JVD. Lungs: Bilateral good air entry present. CVS: S1 and S2 heard. Abdomen: Soft, globular. Bowel sounds present. BELLMAN: Alert, awake. Able to move all 4 limbs. Lab Data: Done yesterday, reviewed. CONSIDERATION: 1. Patient admitted with urinary tract infection. 2. Symptoms suggestive of transient ischemic attack. 3. She did have multiple lacunar infarcts. 4. Hypertension. 5. Hyperlipidemia. 6. Noninsulin-dependent diabetes mellitus. PLAN: Labs and medication noted. We are waiting for evaluation from neurologist. Patient may be benefited from an MRA. We will take neurologist's opinion. Meanwhile, continue current treatment and close observation. cc: Jarret Singer MD
[2017-02-17 07:13] LABS: BASO% 0.5 % (0.0-0.8); EOS# 0.07 X1000 (0.0-0.7); EOS% 1.8 % (0.0-10.0); HEMATOCRIT 35.9 % (37.0-47.0); HEMOGLOBIN 11.3 g/dL (12.0-16.0); LYMPH# 1.78 X1000 (1.2-3.4); LYMPH% 45.9 % (20.5-51.1); MCH 28.5 PG (27-31); MCHC 31.5 g/dL (33-37); MCV 90.7 FL (81-99); MONO# 0.38 X1000 (0.11-0.59); MONO% 9.8 % (1.7-9.3); MPV 9.7 FL (7.4-10.4); PLT 312 X1000 (130-400); RBC 3.96 XMIL (4.2-5.4)
[2017-02-17 07:35] LABS: AGAP 11; ALBUMIN 3.8 g/dL (3.5-5.0); ALKALINE PHOSPHATASE 69 U/L (32-104); BUN 15 mg/dL (8-22); CALCIUM 9.2 mg/dL (8.8-10.2); CHLORIDE 103 mmol/L (98-107); COSMO 284; GOT 14 U/L (10-30); GPT 7 U/L (10-36); MAGNESIUM 1.7 mg/dL (1.5-2.7); POTASSIUM 3.8 mmol/L (3.5-5.1); SODIUM 142 mmol/L (136-145); TCO2 28 mmol/L (25-35); TOTAL BILIRUBIN 0.67 mg/dL (0.20-1.00); TOTAL PROTEIN 7.4 g/dL (6.3-8.3)
[2017-02-17 07:45] LABS: FREE T4 1.08 ng/dL (0.93-1.70)
[2017-02-17] MEDS: MIRALAX PO SCH (08:21)
[2017-02-17] MEDS: JANUVIA PO SCH (08:22)
[2017-02-17] MEDS: ROCEPHIN 1 GM/NS 1 GM/50 ML IVPB IV SCH (08:22)
[2017-02-17] MEDS: TOPROL XL PO SCH (08:23)
[2017-02-17] MEDS: COZAAR PO SCH (08:23)
[2017-02-17] MEDS: ASPIRIN EC PO SCH (08:23)
[2017-02-17] MEDS: CARDIZEM CD PO SCH (08:23)
[2017-02-17] MEDS ORDERED: HYDROCHLOROTHIAZIDE PO SCH ×2 (09:00)
--- NOTE | 2017-02-17 12:50 | Diag Imaging Result Doc PS360 ---
EXAM: MRI BRAIN W W/O CONTRAST HISTORY: sudden vomiting, speech difficulty TECHNIQUE: MRI of the brain with and without gadolinium. T1 axial and sagittal, flair and T2 axial, DWI axial with exponential and apparent diffusion coefficient images, gradient echo coronal, and FSPGR 3-D with gadolinium axial with coronal reconstruction. COMMENT: There are punctate areas of diffusion restriction in the posterior temporal lobes bilaterally as well as both cerebellar hemispheres. This suggests a small emboli in the posterior circulation. No evidence of bleed or abnormal extra-axial fluid collection is present. There is no evidence of abnormal gadolinium enhancement. There is a 5 mm lacunar on the left side of the upper marc. Smaller lacunae in a or dilated perivascular spaces are seen in the mid marc. Both vertebral arteries appear to be widely patent. There is narrowing in the mid basilar artery which may may be near occlusion. There is also extensive chronic microvascular change in the subcortical and periventricular white matter of both cerebral hemispheres. IMPRESSION: Severe stenosis of the basilar artery. Small acute to ischemic lesions in the posterior hemispheres and cerebellar hemispheres. Chronic microvascular changes elsewhere as described above. The findings were discussed with Skyler Meyers III, MD at 02/17/2017 12:47 PM. Electronically signed by Alber Walter 02/17/2017 12:47 PM
--- NOTE | 2017-02-17 13:55 | CONSULTATION ---
DATE OF CONSULTATION: 02/17/2017 HISTORY OF PRESENT ILLNESS: Ms. Marroquin is 77 years old, and she had another episode of queasiness with question of vertebrobasilar etiology. She reports feeling suddenly sick with vomiting, and she had a sense that there were "sticking" sensations across her mouth bilaterally. She believes that her speech was impaired to the point she could hardly make herself understood. On close questioning, I do not know if she is describing dysarthria or dysphasia. At one point, she felt sedated and not sure she could understand what her was telling her. She felt weak all over, unsteady without definite focal weakness or focal clumsiness. She did not notice definite vision disturbance. She has some chronic posterior headache, and that was not any worse than usual during this episode. She presented to the hospital and began to improve rapidly. Within a few hours, she felt completely recovered. She reports having a similar, but much briefer episode of nausea and funny feeling around the mouth earlier this morning. She had presented to the hospital a few weeks ago after stumbling and falling at home. On her history to me then, she was adamant that she simply tripped over furniture and that she was not significantly dizzy or unsteady. She did not have significant neurologic finding then. MRI then showed evidence of small acute pontine infarction. She came back to the hospital about a week ago with a period of dizziness and unsteadiness, which also resolved in a few hours without apparent neurologic deficit when she was examined by the emergency room physician then. Today, she has brain MRI scan worrisome for significant mid basilar stenosis. Vertebral arteries looked good bilaterally. There is evidence of restricted diffusion in several areas in the cerebellum, and at least 1 small area in the posterior cerebral hemisphere bilaterally. There is evidence of old pontine lacunar infarction consistent with what appeared to be acute on her presentation a few weeks ago. Her risk factors for cerebrovascular ischemic problems include diabetes mellitus , hypertension, dyslipidemia, imaging evidence of previous infarction. She has been taking her medicines as prescribed, by her report. Blood pressures here have ranged mostly 100s to 140s. Initial systolic blood pressure was recorded at 160. Heart rate has ranged 70s to 90s. She has been afebrile. Lab work this admission showed blood sugars 120s-130s. Urine drug screen was all negative. There is nothing else remarkable on the lab. On exam, she is awake, alert, attentive. She recalls discussing symptoms with me in the hospital a few weeks ago. Speech is not dysarthric now. Language function is intact on brief bedside testing. Memory seems good. Head and neck are unremarkable. She has full visual mraie tested carefully by confrontational finger counting monocularly and binocularly. Extraocular movements are full. There is not significant nystagmus. Facial motility is a little bit diminished, but symmetric. Gag is intact. Tongue is midline. Palate elevates in the midline. Shoulder shrug is good bilaterally. She has good power in the arms and legs. She did well on [id number] and [id number] testing while supine. I did not test her gait. IMPRESSION: Worrisome clinical picture of repetitive episodes of dizziness, sometimes with nausea and vomiting, possibly with dysarthria or anarthria. To this point, each episode has resolved in a short time. The MRI findings are worrisome for basilar artery occlusive disease. We need to continue aggressive hydration, treat blood pressure cautiously if at all, continue aspirin and statin, treat blood sugar aggressively. She is already managed with Xarelto, and I would be reluctant to add a second antiplatelet medicine to her aspirin dose. We might consider referral for invasive stroke management consideration. Thanks for asking me to see Ms. Marroquin again. cc: MD Jarret Bernardo III, MD MTDD
--- NOTE | 2017-02-17 18:20 | PROGRESS NOTE ---
DATE: 02/17/2017 SUBJECTIVE: Ms. Marroquin is doing better. She denied any fever or chills. No chest pain, palpitation. Denied any nausea or vomiting. OBJECTIVE: Vital signs: Noted. Lungs: Bilateral good air entry present. Cardiovascular: S1 and S2 heard. Abdomen: Soft, globular. Bowel sounds present. TRAUMA REGISTRAR: Alert, awake. Able to move all 4 limbs. ASSESSMENT AND PLAN: The patient had another MRI done, results reviewed. The patient evaluated by the neurologist, recommendation noted, and discussed with Dr. Meyers. They both had concern about major stroke. The patient is on Xarelto and aspirin. We are optimizing. Her lipid panel was adequate. I had tried to contact her daughter, Lucille Garrett, but I could not. I am going to discuss plan with the daughter. Dr. Meyers is trying to get her appointment with a stroke clinic. Discussed fall precaution. I am going to increase her aspirin to a whole tablet a day. Discussed about bleeding. Continue other medication. cc: Jarret Singer MD
[2017-02-17] MEDS: XARELTO PO SCH (18:39)
[2017-02-17] MEDS: LIPITOR PO SCH (20:24)
[2017-02-17] MEDS: NEURONTIN PO SCH (20:24)
[2017-02-17] MEDS ORDERED: NEURONTIN PO SCH (21:00)
[2017-02-17] MEDS: TYLENOL PO PRN (22:51)
[2017-02-18] MEDS: NS 1,000 ML IV SCH (00:58)
[2017-02-18] MEDS: ROCEPHIN 1 GM/NS 1 GM/50 ML IVPB IV SCH (06:04)
--- NOTE | 2017-02-18 06:49 | PROGRESS NOTE ---
DATE: 02/18/2017 SUBJECTIVELY: Ms. Marroquin is doing better. She denied any symptoms suggestive of TIA or CVA. No slurred speech or dizziness. No high-grade fever or chills. No nausea or vomiting. Her vital signs noted. At times, her blood pressure was low. I discontinued her hydrochlorothiazide. The patient had another MRI done yesterday. Results reviewed and discussed with neurologist. OBJECTIVE: Neck is supple. No JVD. Lungs: Bilateral good air entry present. CVS: S1 and S2 heard. Abdomen: Soft, nontender. Bowel sounds present. 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 LABORATORY DATA: Lab data ordered this morning. Results are pending. ASSESSMENT AND PLAN: I had a lengthy discussion with the patient's son yesterday about her condition, multiple TIA, the risk of major stroke, our treatment, and limitation. He understood and agreed. We are working on to get her appointment with stroke clinic at [facility] and our limitations. Appreciate Dr. Meyers's help managing this patient. He understood and agreed. I am going to continue current treatment. Close observation. Risk factor modification. Stop IV fluid. Ambulate the patient in the room and hallway. If clinical condition permits, we will plan discharging patient home this afternoon. cc: Jarret Singer MD
[2017-02-18 06:50] LABS: HDL 34 mg/dL (45-65); LDL 84 mg/dL; TRIGLYCERIDES 80 mg/dL (35-135); VLDL 16 mg/dL
[2017-02-18] MEDS ORDERED: PRILOSEC PO SCH (07:00)
[2017-02-18 07:49] VITALS: BP 122/71
[2017-02-18] MEDS: TOPROL XL PO SCH (08:16)
[2017-02-18] MEDS: JANUVIA PO SCH (08:17)
[2017-02-18] MEDS: MIRALAX PO SCH (08:17)
[2017-02-18] MEDS: CARDIZEM CD PO SCH (08:17)
[2017-02-18] MEDS: COZAAR PO SCH (08:17)
[2017-02-18] MEDS ORDERED: ASPIRIN EC PO SCH (09:00)
[2017-02-18] MEDS: XARELTO PO SCH (16:27)
--- NOTE | 2017-02-19 05:17 | DISCHARGE SUMMARY ---
ADMISSION DATE: 02/16/2017 DISCHARGE DATE: 02/18/2017 FINAL DISCHARGE DIAGNOSES: 1. Urinary tract infection. 2. Multiple lacunar infarct. 3. Altered mental status. 4. Hypertension. 5. Hyperlipidemia. 6. NIDDM. HISTORY OF PRESENT ILLNESS: The patient is a 77-year-old patient admitted with dizziness slurred speech, and at times unsteady gait, who came to the emergency room. The patient had multiple ER visits due to symptoms suggestive of TIA and CVA. The patient found to have a UTI. She had altered mental status. I decided to admit the patient for further care. I was concerned due to her multiple strokes, and I was concerned about a major stroke. Admitted the patient, hydrated her and treated UTI. We did neurology consult again. The patient was not taking her Xarelto. Her clinical condition stabilized and improved. I had a lengthy discussion with the patient and her son about her risk of major stroke and importance of taking anticoagulation properly with risk factor modification. I appreciated Dr. Meyers's help managing the patient. Repeat MRI did show new lacunar infarct. We are thinking source of embolization could be posterior circulation. The neurology's recommendation is to refer her to stroke clinic at [facility]. We sent the record and awaiting for appointment. Dr. Meyers is helping us getting early appointment. Overall, patient is doing better. I am going to discharge her home today. DISCHARGE EXAMINATION: I reevaluated the patient this evening. Her vital signs are as noted. Lungs clear. Heart regular. Abdomen is soft and nontender. Bowel sounds present. STRATEGIC INSIGHTS LEAD: Alert, awake, and able to move all 4 limbs. 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 Small acute ischemic lesion in the posterior hemisphere and cerebellar hemisphere. Chronic microvascular changes as above findings. I did recheck lipid panel. Results reviewed. TSH 2.3. Free T4 1.08. Total cholesterol 134. LDL 84. Triglycerides were 80. Electrolytes were fairly benign. The PT and PTT were normal. Hemoglobin 11.3 and hematocrit 35.9. WBC count 3.88. Urine culture grew staphylococcal hemolyticus which is sensitive to Bactrim. We are going to continue Xarelto and aspirin. Risk of bleeding discussed at length with the patient and son. Continue rest of the medicine. I am going to hold hydrochlorothiazide because of the low normal blood pressure. Monitor blood pressure at home. We are going to get home health. Follow up with me next week. Physical therapy. Discharge plan discussed at length with the patient and her friend. cc: Jarret Singer MD
== END 2017-02-18 17:30 | disposition home or self-care (01) ==
LOC: ED 09:35 → 3N 13:28
PROVIDERS: ADMIT Internal Medicine; ATTEND Internal Medicine

== ENCOUNTER 2017-04-02 09:58 | Observation (INO) ==
[2017-04-02] MEDS ORDERED: ASPIRIN PO STA (10:22)
--- NOTE | 2017-04-02 10:28 | EKG Report ---
Test Performed on : 04/02/2017 10:05:41 AM Test Reason : SOB Blood Pressure : / mmHG Vent. Rate : 090 BPM Atrial Rate : 090 BPM P-R Int : 198 ms QRS Dur : 078 ms QT Int : 380 ms P-R-T Axes : 069 024 039 degrees QTc Int : 464 ms Normal sinus rhythm. Septal infarct (cited on or before 17-MAR-2017) Abnormal ECG When compared with ECG of 21-MAR-2017 21:47, No significant change was found Unconfirmed Result
[2017-04-02 10:58] LABS: MANUAL DIFF NEEDED? NO
--- NOTE | 2017-04-02 11:01 | Diag Imaging Result Doc PS360 ---
EXAM: CHEST-2 VIEWS HISTORY: CP TECHNIQUE: COMPARISON: 03/17/2017 FINDINGS: No change in the right-sided portacatheter. No pneumothorax. Heart is borderline mildly prominent. Mild increased interstitial markings throughout. No pleural effusions. There are surgical clips overlying the left chest. Mild scoliosis. No consolidation. There has been prior surgery to the distal right clavicle. IMPRESSION: Mild increased interstitial markings which may represent mild pulmonary edema. Electronically signed by Mehrdad Trejo 04/02/2017 10:58 AM
[2017-04-02 11:05] LABS: BASO% 0.5 % (0.0-0.8); EOS# 0.09 X1000 (0.0-0.7); EOS% 2.1 % (0.0-10.0); HEMATOCRIT 32.7 % (37.0-47.0); HEMOGLOBIN 10.3 g/dL (12.0-16.0); LYMPH# 1.62 X1000 (1.2-3.4); LYMPH% 38.6 % (20.5-51.1); MCH 28.7 PG (27-31); MCHC 31.5 g/dL (33-37); MCV 91.1 FL (81-99); MONO# 0.44 X1000 (0.11-0.59); MONO% 10.5 % (1.7-9.3); MPV 9.9 FL (7.4-10.4); NEUT% 48.3 % (42.2-75.2); PLT 264 X1000 (130-400); RBC 3.59 XMIL (4.2-5.4)
[2017-04-02] MEDS ORDERED: LASIX IV ONE (11:05)
[2017-04-02 11:16] LABS: INR 1.29; PROTIME 13.8 Seconds (9.2-11.7); PTT 36.2 Seconds (22.0-36.0)
[2017-04-02 11:31] LABS: AGAP 12; ALBUMIN 3.5 g/dL (3.5-5.0); ALKALINE PHOSPHATASE 54 U/L (32-104); BUN 11 mg/dL (8-22); CALCIUM 8.8 mg/dL (8.8-10.2); CHLORIDE 103 mmol/L (98-107); CK PROFILE 73 U/L (24-173); COSMO 277; GOT 12 U/L (10-30); GPT 6 U/L (10-36); MAGNESIUM 1.7 mg/dL (1.5-2.7); POTASSIUM 4.1 mmol/L (3.5-5.1); SODIUM 139 mmol/L (136-145); TCO2 24 mmol/L (25-35); TOTAL BILIRUBIN 0.38 mg/dL (0.20-1.00); TOTAL PROTEIN 6.5 g/dL (6.3-8.3)
--- NOTE | 2017-04-02 12:20 | PROVIDER DOCUMENTATION ---
This chart was entered by Ruth Ann Randall Scribe, acting as scribe for Altaf Vasquez MD. HPI-Respiratory General - General Chief Complaint: Shortness of Breath Stated Complaint: SOB Time Seen by Provider: 04/02/17 10:16 Source: patient Allergies/Adverse Reactions: Patient Allergies Allergy/AdvReac Type Severity Reaction Status Date / Time diphenhydramine Allergy Intermediate ABDOMINAL Verified 04/02/17 10:21 [From Benadryl PAIN Allergy/Sinus/Headach] diphenhydramine HCl * Allergy Intermediate ABDOMINAL Verified 04/02/17 10:21 [From Benadryl PAIN Allergy/Sinus/Headach] phenylephrine HCl * Allergy Intermediate ABDOMINAL Verified 04/02/17 10:21 [From Benadryl PAIN Allergy/Sinus/Headach] pseudoephedrine HCl * Allergy Intermediate ABDOMINAL Verified 04/02/17 10:21 [From Benadryl PAIN Allergy/Sinus/Headach] Home Medications: Home Medication List Medication Instructions Recorded Confirmed Last Taken Type Sitagliptin Phosphate [Januvia] 100 mg PO DAILY 10/05/12 03/17/17 03/17/17 07: 00 History Atorvastatin Calcium [Lipitor] 40 mg PO QHS 04/29/16 03/17/17 03/16/17 20:00 History Metoprolol Succinate [Toprol Xl] 12.5 mg PO DAILY #15 tab.er.24h 02/03/1703/17/17 07:00 Rx Rivaroxaban [Xarelto] 20 mg PO WSUPPER tablet 02/03/17 03/17/17 03/16/17 19:00 Rx Acetaminophen [Tylenol] 500 mg PO Q6H PRN PRN #0 tablet 02/18/17 03/17/17 08:00 Rx Aspirin [Aspirin EC] 81 mg PO DAILY 30 Days 02/18/17 03/17/17 03/17/17 08:00 Rx Gabapentin [Neurontin] 100 mg PO HS capsule 02/18/17 03/17/17 03/17/17 07:00 Rx Omeprazole [Prilosec] 20 mg PO DAILY@0700 capsule 02/18/17 03/17/17 03/17/17 07 :00 Rx Polyethylene Glycol 3350 [Gavilax] 17 gm PO DAILY #30 powd.pack 02/18/1703/17/17 07:00 Rx Sennosides/Docusate Sodium 1 each PO BID 03/02/17 03/17/17 03/17/17 07:00 History [Senna-Docusate Sodium Tab] Diltiazem C.d. [Cardizem Cd] 120 mg PO DAILY capsule 03/04/17 03/17/17 07:00 Rx Losartan [Cozaar] 25 mg PO DAILY tablet 03/04/17 03/17/17 03/17/17 07:00 Rx - History of Present Illness-Resp Nature of Presenting Problem: 77 y/o F presents to ED cc of sob. Pt was seen at PCP office this am for medication changes. When arrived to office pt was SOB and was sent to ED for evaluation . Pt states the SOB onset this morning but did not think anything about it. Pt as bedside states pt has been coughing and SOB. Pt is alert and oriented. Quality of Pain: reports: none Severity in ED: reports: mild Onset/Duration: reports: just prior to arrival, this morning Timing: reports: still present Exposure: reports: unknown cause Cough Quality/Degree: reports: productive cough Current Respiratory Medication Therapy: Initiated see nurses note Modifying Factors: improves with: nothing Associated Symptoms: reports: cough, shortness of breath. denies: chest pain/ soreness, fever/chills, hurts to breathe, muscle/bodyaches, sore throat Similar Symptoms Previously?: No Recently seen or treated by another doctor?: Yes Review of Systems - Adult - REVIEW OF SYSTEMS - ADULT Constitutional: denies: chills, fever Eyes: denies: blurred vision, double vision Ears, Nose, Mouth & Throat: denies: ear pain, throat pain Cardiovascular: denies: chest pain, irregular heart rate, palpitations, syncope Respiratory: reports: cough, shortness of breath Gastrointestinal: denies: abdominal pain, constipation, diarrhea, nausea, rectal bleeding, vomiting Genitourinary: denies: dysuria, hematuria, hesitency, urinary retention Neurological: denies: dizziness/vertigo, headache/migraines, seizure, slurred speech, syncope, tremors Past History - Adult - PAST MEDICAL HISTORY-ADULT Review of Records: reports: Old Records Reviewed, Nursing Assessment Review Major Childhood Illnesses: reports: denies history Cardiovascular: reports: HTN Respiratory: reports: denies history Gastrointestinal: reports: denies history Obstetrical/Gynecological: reports: other (breast ca) Genitourinary: reports: denies history Musculoskeletal: reports: denies history Neurological: reports: TIA Endocrine/Immune: reports: Diabetes Other Conditions: reports: other cancer (breast) - PRIOR SURGERIES/PROCEDURES Surgical/Procedure History: reports: hysterectomy, breast - IMMUNIZATION STATUS Childhood Immunizations: See Nurse Assessment Flu Vaccine: See Nurse Assessment - FAMILY HISTORY Family History: reviewed, not pertinent - SOCIAL HISTORY Smoking: denies, non-smoker Substance Use: none/never, denies Physical Exam-General - PHYSICAL EXAM-ADULT Initial Vital Signs Reviewed: Yes - CONSTITUTIONAL General Appearance: appears well, alert, no apparent distress - EYES Eyes: pink conjunctivae - HEAD, EARS, NOSE, MOUTH & THROAT HENMT: normocephalic/atraumatic, moist mucous membranes, normal ENT inspection - NECK Neck: non-tender - RESPIRATORY Respiratory: chest non-tender, decreased breath sounds (on the right), rhonchi ( to the Left), increased rate - CARDIOVASCULAR Cardiovascular: normal peripheral pulses, no edema, no gallop, no JVD, no murmur , tachycardia - GASTROINTESTINAL (ABDOMEN) Abdominal Exam: normal bowel sounds, non tender, soft - MUSCULOSKELETAL Back Exam: normal inspection, no CVA tenderness, no vertebral tenderness Extremity: normal range of motion, non-tender - SKIN Integumentary: normal color, normal turgor, warm/dry - NEUROLOGIC Neurologic: grossly normal, no motor/sensory deficits - PSYCHIATRIC Psych/Mental Status: oriented x 3 Progress - PLAN OF CARE/RESULTS Progress/Plan/Lab Results: Vital Signs - 8 hr 04/02/17 10:00 04/02/17 11:44 Temperature 98 F Pulse Rate 94 H 89 Respiratory Rate 20 30 H Blood Pressure 154/83 156/91 O2 Sat by Pulse Oximetry 99 100 Laboratory Results - last 24 hr 04/02/17 04/02/17 04/02/17 10:38 10:38 10:38 WBC 4.20 L RBC 3.59 L Hgb 10.3 L Hct 32.7 L MCV 91.1 MCH 28.7 MCHC 31.5 L RDW Std Deviation 14.8 H Plt Count 264 MPV 9.9 Immature Gran % (Auto) 0.0 Neut % (Auto) 48.3 Lymph % (Auto) 38.6 Howell % (Auto) 10.5 H Eos % (Auto) 2.1 Baso % (Auto) 0.5 Immature Gran # (Auto) 0.00 Neut # (Auto) 2.03 Lymph # (Auto) 1.62 Howell # (Auto) 0.44 Eos # (Auto) 0.09 Baso # (Auto) 0.02 PT INR PTT (Actin FS) D-Dimer 0.22 Sodium 139 Potassium 4.1 Chloride 103 Carbon Dioxide 24 L Anion Gap 12 BUN 11 Creatinine 0.9 Estimated GFR/1.73 m2 > 60 BUN/Creatinine Ratio 12 Glucose 93 Calculated Osmolality 277 Calcium 8.8 Magnesium 1.7 Total Bilirubin 0.38 AST 12 ALT 6 L Alkaline Phosphatase 54 Creatine Kinase 73 Troponin T Qqf-[id number]-Wyuhkcvoswi Pept Total Protein 6.5 Albumin 3.5 Globulin 3.0 Albumin/Globulin Ratio 1.2 04/02/17 04/02/17 04/02/17 10:38 10:38 10:38 WBC RBC Hgb Hct MCV MCH MCHC RDW Std Deviation Plt Count MPV Immature Gran % (Auto) Neut % (Auto) Lymph % (Auto) Howell % (Auto) Eos % (Auto) Baso % (Auto) Immature Gran # (Auto) Neut # (Auto) Lymph # (Auto) Howell # (Auto) Eos # (Auto) Baso # (Auto) PT 13.8 H INR 1.29 PTT (Actin FS) 36.2 H D-Dimer Sodium Potassium Chloride Carbon Dioxide Anion Gap BUN Creatinine Estimated GFR/1.73 m2 BUN/Creatinine Ratio Glucose Calculated Osmolality Calcium Magnesium Total Bilirubin AST ALT Alkaline Phosphatase Creatine Kinase Troponin T < 0.010 Odx-[id number]-Ypyjmdrjvsq Pept 1672 H Total Protein Albumin Globulin Albumin/Globulin Ratio Orders Category Date Time Status Cardiac Monitoring DIRECTED Care 04/02/17 10:22 Active Saline Loc NOW Care 04/02/17 10:22 Active CHEST-2 VIEWS [RAD] Stat Exams 04/02/17 10:22 Completed BLOOD CULTURE [BLDCUL] Stat Lab 04/02/17 10:43 Received CBC WITH ELECTRONIC DIFF [HEME] Stat Lab 04/02/17 10:38 Completed CK PROFILE [SP CHEM] Stat Lab 04/02/17 10:38 Completed COMPREHENSIVE METABOLIC PANEL [CHEM] Stat Lab 04/02/17 10:38 Completed D-DIMER [CHEM] Stat Lab 04/02/17 10:38 Completed MAGNESIUM [CHEM] Stat Lab 04/02/17 10:38 Completed PRO B-NATRIURETIC PEPTIDE Stat Lab 04/02/17 10:38 Completed PROTIME WITH INR [COAG] Stat Lab 04/02/17 10:38 Completed PTT [COAG] Stat Lab 04/02/17 10:38 Completed TROPONIN T Stat Lab 04/02/17 10:38 Completed Aspirin Med 04/02/17 10:22 Discontinued 325 mg PO STAT STA Furosemide [Lasix] Med 04/02/17 11:05 Discontinued 40 mg IV NOW ONE EKG [EKG] Stat Ther 04/02/17 10:03 Draft PLAN: LABS , XRAY, EKG, MONITOR PT Result Diagrams: 04/02/17 10:38 04/02/17 10:38 - REASSESSMENT Reassessment #1 Time Reassessed: 12:05 Status: unchanged (Pt reports still being SOB, Pt has been using restroom but getting up causes worsening SOB) - XRAY 1 XRAY: Bilateral XRAY Study: Chest Impression: Normal (mild increased interstitial markings which may represent mild pulmonary edema- (radiologist)) XRAY Interpretation: see impression - CONSULTS/PCP/HOSPITALIST Notification #1 *Consult/PCP/Hospitalist*: (PCP) Time Discussed: 12:09 Consult Disposition: Admit Departure - Departure Date of Disposition Decision: 04/02/17 Time of Disposition Decision: 12:07 DIAGNOSIS: CHF (congestive heart failure) Disposition: ADMITTED INPATIENT 09 Certified Medical Emergency: Emergent Condition: Stable Referrals and Follow-Ups: Jarret Singer MD [Primary Care Provider] - - Critical Care Note This patient required my direct & personal management of CC.: No This chart was documented by the indicated scribe, (Ruth Ann Randall Scribe) and accurately reflects the services I performed and decisions made by me, Altaf Vasquez MD, as attested by the provider's signature.
[2017-04-02] MEDS ORDERED: TYLENOL PO PRN ×2 (14:26→15:17)
[2017-04-02] MEDS ORDERED: ZOFRAN IV PRN (14:26)
[2017-04-02] MEDS ORDERED: MORPHINE IV PRN (14:26)
[2017-04-02] MEDS: XARELTO PO SCH (17:03)
[2017-04-02] MEDS: PERICOLACE PO SCH (22:19)
[2017-04-02] MEDS: LIPITOR PO SCH (22:19)
[2017-04-02] MEDS: NEURONTIN PO SCH (22:19)
[2017-04-03 06:23] LABS: MANUAL DIFF NEEDED? NO
[2017-04-03 06:30] LABS: BASO% 0.5 % (0.0-0.8); EOS# 0.12 X1000 (0.0-0.7); EOS% 2.9 % (0.0-10.0); HEMATOCRIT 33.2 % (37.0-47.0); HEMOGLOBIN 10.5 g/dL (12.0-16.0); LYMPH# 1.71 X1000 (1.2-3.4); LYMPH% 40.9 % (20.5-51.1); MCH 28.7 PG (27-31); MCHC 31.6 g/dL (33-37); MCV 90.7 FL (81-99); MONO# 0.52 X1000 (0.11-0.59); MONO% 12.4 % (1.7-9.3); MPV 9.5 FL (7.4-10.4); NEUT% 43.3 % (42.2-75.2); PLT 246 X1000 (130-400); RBC 3.66 XMIL (4.2-5.4)
[2017-04-03] MEDS: PRILOSEC PO SCH (06:39)
[2017-04-03 06:47] LABS: AGAP 12; ALBUMIN 3.5 g/dL (3.5-5.0); ALKALINE PHOSPHATASE 57 U/L (32-104); BUN 13 mg/dL (8-22); CHLORIDE 102 mmol/L (98-107); COSMO 283; GOT 11 U/L (10-30); GPT 5 U/L (10-36); MAGNESIUM 1.6 mg/dL (1.5-2.7); POTASSIUM 3.7 mmol/L (3.5-5.1); SODIUM 142 mmol/L (136-145); TCO2 28 mmol/L (25-35); TOTAL BILIRUBIN 0.66 mg/dL (0.20-1.00); TOTAL PROTEIN 6.6 g/dL (6.3-8.3)
[2017-04-03] MEDS ORDERED: LASIX IV ONE (08:26)
[2017-04-03] MEDS ORDERED: CARDIZEM CD PO SCH (09:00)
--- NOTE | 2017-04-03 09:09 | PROGRESS NOTE ---
DATE: 04/03/2017 SUBJECTIVE: Ms. Marroquin is doing better. Her shortness of breath is improving. No unusual cough or expectoration. She denied any chest pain. The patient was able to rest well last night. No unusual bleeding. PHYSICAL EXAMINATION: Vital Signs: Her vital signs noted. Neck: Supple. No JVD. Lungs: Bilateral good air entry present. CVS: S1 and S2 heard. Abdomen: Soft, globular. Bowel sounds present. JEWEL SAWYER: Alert, awake. Able to move all 4 limbs. CONSIDERATION: 1. Patient admitted with new onset congestive heart failure. Her last echocardiogram done in April 2016 did reveal mildly diminished systolic function. I am going to recheck echocardiogram. We will continue current treatment, give her some intravenous Lasix today. I am going to stop her Cardizem. Patient is already on beta chava. 2. Her other problems include hypertension, hyperlipidemia, and insulin-dependent diabetes mellitus. I am going to repeat chest x-ray tomorrow. PLAN: Overall plan discussed with the patient and she is in agreement. cc: Jarret Singer MD
[2017-04-03] MEDS: TOPROL XL PO SCH (09:15)
[2017-04-03] MEDS: ASPIRIN EC PO SCH (09:17)
[2017-04-03] MEDS: PERICOLACE PO SCH ×2 (09:17→20:34)
[2017-04-03] MEDS: JANUVIA PO SCH (09:17)
[2017-04-03] MEDS: MIRALAX PO SCH (09:17)
[2017-04-03] MEDS: COZAAR PO SCH (09:17)
--- NOTE | 2017-04-03 11:58 | HISTORY AND PHYSICAL ---
CHIEF COMPLAINT: Shortness of breath. HISTORY OF PRESENT ILLNESS: Ms. Marroquin is a 77-year-old -[place] patient. Known case of hypertension, IDDM, hyperlipidemia, breast cancer, multiple TIAs, atherosclerotic cerebrovascular disease. She woke up this morning with shortness of breath. The patient claims she does have occasional shortness of breath but it goes away within a minute or 2. This morning, it persisted, and the patient was thinking it was her Xarelto or Prilosec. She came to my office with those 2 medications. Patient has been on this medication for a long time. I evaluated the patient. The patient was in mild respiratory distress. Her O2 saturation in my office was 98%. Because of her shortness of breath, on exam, the patient does have bibasilar few rales. The patient was tachypneic, her blood pressure was minimally elevated. I decided to send patient to the ER for further workup. In the ER, the patient found to have new onset congestive heart failure. She was given Lasix. The patient was getting short of breath even going to the bathroom, and we decided to admit the patient for further care. The patient had vague chest pain; at times, palpitation. She denied any nausea or vomiting. No orthopnea or PND. No major weight gain or weight loss. The patient claims compliance to her medications. No leg swelling or calf pain. No heat or cold intolerance. No unusual cough, expectoration, or hemoptysis. ALLERGIES: Diphenhydramine. PAST MEDICAL HISTORY: Hypertension, hyperlipidemia, paroxysmal atrial fibrillation, breast cancer, TIA and CVA, mild cognitive impairment, gastritis and reflux disease, osteoarthritis, constipation. PERSONAL HISTORY: Single, lives with a friend. Nonsmoker. Denied alcohol or substance abuse. FAMILY HISTORY: Significant for diabetes, hypertension, and CVA. REVIEW OF SYSTEMS: As per HPI. HOME MEDICATIONS: 1. Aspirin. 2. Xarelto. 3. Lipitor. 4. Neurontin. 5. Cozaar. 6. Toprol. 7. Cardizem. 8. Prilosec. 9. MiraLAX. 10. Januvia. REVIEW OF SYSTEMS: As per HPI. PHYSICAL EXAMINATION: GENERAL: Elderly, -[place] female patient in mild distress. VITAL SIGNS: In the emergency room, blood pressure 154/83, pulse is 94, respirations 20, temperature 97.7 degrees. Her respiratory rate was at times 25-30. SKIN: Normal turgor. No rash or petechiae. HEAD: Atraumatic, normocephalic. Esmond conjunctivae. Anicteric sclerae. Extraocular muscle movement normal. Fundus cannot be penetrated. Good oral hygiene. No tonsillopharyngeal congestion or exudate. Ears and nose benign. NECK: Supple. No JVD, thyromegaly or lymphadenopathy. CHEST: Bilateral good air entry present. Bibasilar crepitation. No rales. CARDIOVASCULAR: S1 and S2 heard. No gallop or thrill. ABDOMEN: Soft, nontender. Bowel sounds present. No organomegaly or mass. Bilateral air entry present. Bibasilar crepitation. Bibasilar few rales. CVS: S1 and S2 heard. No gallop or thrill. Abdomen soft, nontender. Bowel sounds present. Extremities: No cyanosis, clubbing. No acute DVT. TOWEL SEWER: Alert, awake, able to move all 4 limbs. ADMISSION LABORATORY DATA: WBC count 4.2, hemoglobin 10.3, hematocrit 32.7, platelet count 264,000. PT/INR 1.29. D-dimer was 0.22. PTT 36.2. Electrolytes were fairly benign. Cardiac isoenzymes negative. ProBNP 16,072. Chest x-ray did reveal mild increased interstitial markings, which may be represent mild pulmonary edema. CONSIDERATION: 1. Shortness of breath. 2. New onset congestive heart failure. 3. Hypertension. 4. Hyperlipidemia. 5. Mjy-uopnylc-kfmfizhhc diabetes. 6. Breast cancer. 7. History of transient ischemic attack. PLAN: The patient was given IV Lasix, oxygen. We will admit the patient. Telemetry monitoring. Considering further workup and close observation. Overall plan discussed with the patient, and she is in agreement. cc: Jarret Singer MD
[2017-04-03] MEDS: XARELTO PO SCH (16:52)
[2017-04-03] MEDS: NEURONTIN PO SCH (20:33)
[2017-04-03] MEDS: LIPITOR PO SCH (20:33)
[2017-04-04] MEDS: PRILOSEC PO SCH (06:36)
--- NOTE | 2017-04-04 07:46 | Diag Imaging Result Doc PS360 ---
EXAM: CHEST-2 VIEWS HISTORY: hypoxia TECHNIQUE: 04/02/2017 COMPARISON: None. FINDINGS: The lungs are well expanded. The heart is not enlarged. The vessels are not distended. There are no infiltrates. No pleural effusions. There has been prior surgery to the right clavicle. No change in the right subclavian portacatheter. No pneumothorax. IMPRESSION: Overall interval improvement. Electronically signed by Mehrdad Trejo 04/04/2017 7:44 AM
[2017-04-04 07:51] LABS: AGAP 11; ALBUMIN 3.9 g/dL (3.5-5.0); ALKALINE PHOSPHATASE 63 U/L (32-104); BUN 11 mg/dL (8-22); CALCIUM 9.4 mg/dL (8.8-10.2); CHLORIDE 103 mmol/L (98-107); COSMO 286; GOT 12 U/L (10-30); GPT 6 U/L (10-36); MAGNESIUM 1.7 mg/dL (1.5-2.7); POTASSIUM 3.5 mmol/L (3.5-5.1); SODIUM 144 mmol/L (136-145); TCO2 30 mmol/L (25-35); TOTAL BILIRUBIN 0.54 mg/dL (0.20-1.00); TOTAL PROTEIN 7.4 g/dL (6.3-8.3)
[2017-04-04 08:00] VITALS: BP 135/73
[2017-04-04] MEDS: MIRALAX PO SCH (08:27)
[2017-04-04] MEDS: JANUVIA PO SCH (08:27)
[2017-04-04] MEDS: PERICOLACE PO SCH (08:27)
[2017-04-04] MEDS: ASPIRIN EC PO SCH (08:27)
[2017-04-04] MEDS: COZAAR PO SCH (08:27)
[2017-04-04] MEDS: TOPROL XL PO SCH (08:27)
[2017-04-04] MEDS ORDERED: KLOR-CON PO ONE (10:41)
--- NOTE | 2017-04-04 11:57 | PROGRESS NOTE ---
DATE: 04/04/2017 SUBJECTIVE: Ms. Marroquin is feeling better. Her shortness of breath improved. The patient is ambulating well in the hallway all around. The patient claimed that in the morning time, she does not feel good. Once she gets up and moves around, she does feel better. No nausea or vomiting. No chest pain. Her vital signs noted. The patient was feeling dizzy in the morning. Her blood pressure yesterday was low. The patient did receive some IV Lasix. OBJECTIVE: Vital Signs: Noted. Neck: Supple. No JVD. Lungs: Bilateral good air entry present. CVS: S1 and S2 heard. Abdomen: Soft, nontender. Bowel sounds present. Extremities: No cyanosis, clubbing. No acute DVT. VERIFICATION ENGINEER: Alert, awake. Able to move all 4 limbs. Labs: The patient's repeat chest x-ray did show overall interval improvement in pulmonary edema. Her lab data done this morning, electrolytes were stable. Potassium was 3.5, BUN was 11, creatinine 1, potassium was 3.5. ASSESSMENT AND PLAN: I am going to supplement some potassium. Patient admitted with uncompensated congestive heart failure. I got a limited echocardiogram, result is pending. Overall, patient is doing better. I am going to discharge her home on potassium and Lasix. We are going to stop her Cardizem. Continue beta chava, Cozaar. She will have home health. Cardiac diet. Monitor blood pressure at home. Follow up with me as scheduled. In case of more distress, call us back or go to emergency room. Overall discharge plan discussed at length with the patient and she is in agreement. cc: Jarret Singer MD
--- NOTE | 2017-04-05 09:27 | ECHO REPORT ---
ORDER DATE: 04/03/2017 INTERPRETING PHYSICIAN: Dr. De Luna REQUESTING PHYSICIAN: CLINICAL INDICATIONS: This is a 77-year-old female with congestive heart failure, hypertension, diabetes. M-MODE MEASUREMENTS: Right ventricle: 2.3 cm. Left ventricle end diastole: 4.1 cm. Left ventricle end systole: 3.0 cm. Posterior wall: 1.3 cm. Interventricular septum: 1.3 cm. Left atrium: 3.7 cm. Aortic root: 3.0 cm. SUMMARY OF 2-DIMENSIONAL IMAGIN. There is a mild degree of concentric LVH. Left ventricular systolic function appears to be normal. Ejection fraction is estimated at 61%. No wall motion abnormality is noted. The left atrium is significantly enlarged. 2. The right atrium and right ventricle appear to be unremarkable. 3. The mitral valve appears to be grossly within normal range. 4. The aortic valve shows some sclerosis. There is no stenosis. 5. There is evidence of an epicardial fat pad. 6. There is no evidence of any tricuspid or pulmonic regurgitation. 7. Limited color flow of the mitral valve was done, and there is only very mild degree of regurgitation. 8. Pulse wave Doppler was not used in this study. This study is limited. CONCLUSIONS: 1. Mild degree of concentric LVH. 2. Normal left ventricular systolic function. Ejection fraction is 61%. 3. Mild degree of mitral regurgitation. 4. Thickening of the mitral annulus and significant enlarged left atrium. 5. This study would be consistent with a history of diastolic dysfunction. Clinical correlation is recommended. cc: MD Jarret Choudhary MD
== END 2017-04-04 14:45 | disposition home or self-care (01) ==
LOC: 3N 09:58 → ED 09:58
PROVIDERS: ADMIT Internal Medicine; ATTEND Internal Medicine

== ENCOUNTER 2017-06-27 22:37 | Inpatient (IN) ==
[2017-06-27] MEDS ORDERED: ASPIRIN PO STA (22:52)
[2017-06-27] MEDS ORDERED: LASIX IV ONE (23:06)
[2017-06-27 23:23] LABS: ALLEN TEST YES; BE -6.1 mmoll (-3.0-3.0); BLOOD TYPE ARTERIAL; DRAW SITE R RADIAL; MODALITY BI PAP; O2(CT) 15.1 mL/dL (15.0-23.0); PCO2(98.6) 42 mmHg (35-45); PO2(98.6) 307 mmHg (60-100); SAMPLE BLOOD; SAO2 100.2 % (95.0-100.0); SRATE 4 BPM; THB 10.4 g/dL (11.5-17.4); pH(98.6) 7.29 (7.35-7.45)
[2017-06-27 23:36] LABS: MANUAL DIFF NEEDED? NO
[2017-06-27 23:43] LABS: BASO% 0.2 % (0.0-0.8); EOS% 1.1 % (0.0-10.0); HEMATOCRIT 34.3 % (37.0-47.0); HEMOGLOBIN 10.4 g/dL (12.0-16.0); IMM GRAN# 0.03 X1000 (0.0-0.04); IMM GRAN% 0.3 % (0.0-0.5); LYMPH# 5.22 X1000 (1.2-3.4); LYMPH% 55.4 % (20.5-51.1); MCHC 30.3 g/dL (33-37); MCV 92.5 FL (81-99); MONO# 0.64 X1000 (0.11-0.59); MONO% 6.8 % (1.7-9.3); NEUT% 36.2 % (42.2-75.2); PLT 364 X1000 (130-400); RBC 3.71 XMIL (4.2-5.4)
[2017-06-27 23:49] LABS: INR 1.66; PTT 36.9 Seconds (22.0-36.0)
[2017-06-28 00:46] LABS: CALCIUM 9.2 mg/dL (8.8-10.2); MAGNESIUM 2.1 mg/dL (1.5-2.7); POTASSIUM 2.9 mmol/L (3.5-5.1); TOTAL BILIRUBIN 0.6 mg/dL (0.20-1.00); TOTAL PROTEIN 7.2 g/dL (6.3-8.3)
[2017-06-28] MEDS ORDERED: KLOR-CON PO ONE (02:48)
[2017-06-28] MEDS: LASIX IV SCH ×2 (03:30→14:01)
[2017-06-28] MEDS: DUONEB (A & A) INH SCH ×4 (03:40→21:20)
[2017-06-28] MEDS ORDERED: PNEUMOVAX 23 IM ONE (03:48)
[2017-06-28 05:06] LABS: URINE CULTURE NEEDED? NO; URINE MICRO REVIEW NEEDED? NO; URINE SOURCE CATH
[2017-06-28 05:14] LABS: BILIRUBIN URINE NEGATIVE (NEGATIVE); BLOOD URINE NEGATIVE (NEGATIVE); COLOR STRAW; GLUCOSE URINE NEGATIVE (NEGATIVE); LEUKOCYTES URINE NEGATIVE (NEGATIVE); NITRITE URINE NEGATIVE (NEGATIVE); PH URINE 5.5; PROTEIN URINE NEGATIVE (NEGATIVE); SP GRAVITY URINE 1.005; TURBIDITY URINE CLEAR (CLEAR); UROBILINOGEN URINE NORMAL (NORMAL)
[2017-06-28 05:15] LABS: UR EPITHELIAL CELLS <10 /HPF (<10); URINE BACTERIA NEGATIVE /HPF; URINE RBC <10 /HPF (<10); URINE WBC <10 /HPF (<10)
--- NOTE | 2017-06-28 05:38 | EKG Report ---
Test Performed on : 06/27/2017 10:44:53 PM Test Reason : SOB Blood Pressure : / mmHG Vent. Rate : 119 BPM Atrial Rate : 119 BPM P-R Int : 160 ms QRS Dur : 068 ms QT Int : 304 ms P-R-T Axes : 061 043 049 degrees QTc Int : 427 ms Sinus tachycardia. with premature ventricular complexes. or fusion complexes Septal infarct (cited on or before 17-MAR-2017) Abnormal ECG When compared with ECG of 20-JUN-2017 00:34, fusion complexes are now present premature ventricular complexes. are now present premature atrial complexes. are no longer present Unconfirmed Result
[2017-06-28] MEDS: HUMALOG SUBQ SCH ×4 (06:46→20:49)
[2017-06-28] MEDS: PRILOSEC PO SCH (06:46)
[2017-06-28] MEDS: TYLENOL PO PRN ×3 (07:18→21:20)
--- NOTE | 2017-06-28 07:31 | Diag Imaging Result Doc PS360 ---
EXAM: CHEST-PORTABLE HISTORY: SOB TECHNIQUE: Portable upright COMPARISON: 06/20/2017 FINDINGS: No change in the right-sided portacatheter. No pneumothorax. The lungs are well expanded. There is mild vascular distention. The heart is mildly prominent. There are surgical clips in the left axilla and there has been prior surgery to the right clavicle. No pleural effusions identified. IMPRESSION: Pulmonary edema Electronically signed by Mehrdad Trejo 06/28/2017 7:29 AM
[2017-06-28] MEDS: PERICOLACE PO SCH ×2 (08:04→20:49)
[2017-06-28] MEDS: MIRALAX PO SCH (08:04)
[2017-06-28] MEDS: ROCEPHIN 1 GM in NS 50 ML IV SCH (08:04)
[2017-06-28] MEDS: COZAAR PO SCH (08:04)
[2017-06-28] MEDS: ASPIRIN EC PO SCH (08:04)
[2017-06-28] MEDS: ICAR-C PO SCH ×2 (08:05→20:49)
[2017-06-28] MEDS: ZOLOFT PO SCH (08:05)
[2017-06-28] MEDS: TOPROL XL PO SCH (08:05)
[2017-06-28] MEDS ORDERED: KLOR-CON PO SCH (09:00)
[2017-06-28] MEDS ORDERED: LASIX IV ONE (11:11)
[2017-06-28] MEDS: XARELTO PO SCH (16:16)
[2017-06-28] MEDS: LIPITOR PO SCH (20:49)
[2017-06-29] MEDS: LASIX IV SCH ×3 (04:00→13:59)
[2017-06-29 04:58] LABS: MANUAL DIFF NEEDED? NO
[2017-06-29 05:03] LABS: BASO% 0.3 % (0.0-0.8); EOS# 0.06 X1000 (0.0-0.7); HEMATOCRIT 33.5 % (37.0-47.0); HEMOGLOBIN 10.6 g/dL (12.0-16.0); LYMPH# 2.47 X1000 (1.2-3.4); LYMPH% 39.3 % (20.5-51.1); MCH 28.3 PG (27-31); MCHC 31.6 g/dL (33-37); MCV 89.6 FL (81-99); MONO# 0.52 X1000 (0.11-0.59); MONO% 8.3 % (1.7-9.3); MPV 9.7 FL (7.4-10.4); NEUT% 51.1 % (42.2-75.2); PLT 311 X1000 (130-400); RBC 3.74 XMIL (4.2-5.4)
[2017-06-29 05:26] LABS: CALCIUM 9.3 mg/dL (8.8-10.2)
[2017-06-29] MEDS: PRILOSEC PO SCH (06:22)
[2017-06-29] MEDS: HUMALOG SUBQ SCH ×4 (06:24→20:19)
--- NOTE | 2017-06-29 07:08 | EKG Report ---
Test Performed on : 06/29/2017 06:40:12 AM Test Reason : dyspnea Blood Pressure : / mmHG Vent. Rate : 085 BPM Atrial Rate : 085 BPM P-R Int : 160 ms QRS Dur : 084 ms QT Int : 452 ms P-R-T Axes : 056 -14 -33 degrees QTc Int : 537 ms Normal sinus rhythm. ST \T\ T wave abnormality, consider anterior ischemia Prolonged QT Abnormal ECG When compared with ECG of 27-JUN-2017 22:44, fusion complexes are no longer present premature ventricular complexes. are no longer present Questionable change in QRS axis Nonspecific T wave abnormality, worse in Inferior leads T wave inversion now evident in Anterior leads Confirmed by Carito RODRIGUEZ, Alfredo Dueñas ([id number]) on 06/30/2017 7:50:27 AM
--- NOTE | 2017-06-29 07:23 | Diag Imaging Result Doc PS360 ---
EXAM: CHEST-PORTABLE HISTORY: dyspnea TECHNIQUE: AP portable at 0500 COMMENT: There is cardiomegaly. There has been a significant improvement in the pulmonary edema which was present on 06/27/2017 in the lung bases. The lungs are nearly completely cleared with minimal residual platelike atelectasis in the left base. IMPRESSION: Improved pulmonary edema. Electronically signed by Alber Walter 06/29/2017 7:21 AM
[2017-06-29] MEDS: ROCEPHIN 1 GM in NS 50 ML IV SCH (07:28)
[2017-06-29] MEDS ORDERED: LEXISCAN ONE (08:43)
[2017-06-29] MEDS: KLOR-CON PO SCH (10:48)
[2017-06-29] MEDS: MIRALAX PO SCH (10:48)
[2017-06-29] MEDS: PERICOLACE PO SCH ×2 (10:48→20:18)
[2017-06-29] MEDS: ZOLOFT PO SCH (10:48)
[2017-06-29] MEDS: ASPIRIN EC PO SCH (10:48)
[2017-06-29] MEDS: ICAR-C PO SCH ×2 (10:48→20:18)
[2017-06-29] MEDS: TOPROL XL PO SCH (10:48)
[2017-06-29] MEDS: COZAAR PO SCH (10:48)
[2017-06-29 11:24] LABS: BLOOD TYPE ARTERIAL; METHB 1.3 % (0.0-1.5); O2(CT) 14.7 mL/dL (15.0-23.0); PCO2(98.6) 40 mmHg (35-45); PO2(98.6) 66 mmHg (60-100); SAMPLE BLOOD; SAO2 95.8 % (95.0-100.0); THB 11.2 g/dL (11.5-17.4); pH(98.6) 7.47 (7.35-7.45)
[2017-06-29 11:25] LABS: ALLEN TEST NO; DRAW SITE R BRACHIAL; MODALITY ROOM AIR
--- NOTE | 2017-06-29 16:12 | Diag Imaging Result Document ---
PROCEDURE NAME: MYOCARDIAL PERF SCAN, STR/REST - 06/29/2017 SUMMARY: The patient was administered 10.1 mCi of technetium-99m sestamibi, after which resting cardiac images were obtained. The patient was subsequently stressed using a Lexiscan protocol. Following the administration of Lexiscan, the heart increased from 93 beats per minute to 112 beats per minute with a blood pressure of 170/109 to 195/104. With Lexiscan, the patient denied chest discomfort. Following the administration of Lexiscan, the patient was administered 43.4 millicuries of technetium-99m sestamibi, after which gated stress cardiac images were obtained. FINDINGS: Baseline ECG demonstrates sinus rhythm, anteroseptal infarct of undetermined age and anterior T-wave inversion in leads V1 to V3. With Lexiscan, there were no diagnostic ST-segment changes. SPECT images were reconstructed in the short, horizontal, vertical long axis. Review of these images demonstrated a medium size moderate defect and uptake in the apical anteroseptal region and apex left ventricle on stress images which partially improves, but does not normalize on resting images. It is also evident on rest images. There is a small amount of reversibility. Gated images demonstrate a calculated left ventricular ejection fraction of 38% with relative akinesis of the apical anteroseptal region and apex. CONCLUSIONS: 1. Adequate response to Lexiscan. 2. Clinically negative for chest pain. 3. Electrocardiographically there are no diagnostic ST-segment changes on ECG following administration of Lexiscan. 4. Lexiscan sestamibi images demonstrate medium sized defect in uptake in the apical anteroseptal region and apex which is predominantly unchanged with a very small amount of reversibility seen on resting images. Lexiscan sestamibi images demonstrate partially reversible medium sized defect in the apical anteroseptal region and apex as described. 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 Moderate reduction in left ventricular systolic function demonstrated with akinesis of the apical anteroseptal region and apex. Clinical correlation recommended. cc: MD Elizabeth Jensen PA
[2017-06-29] MEDS: TYLENOL PO PRN (16:42)
[2017-06-29] MEDS: XARELTO PO SCH (16:42)
[2017-06-29] MEDS: LIPITOR PO SCH (20:18)
[2017-06-30] MEDS: LASIX IV SCH ×2 (03:19→14:34)
[2017-06-30 05:04] LABS: HEMATOCRIT 33.2 % (37.0-47.0); HEMOGLOBIN 10.6 g/dL (12.0-16.0); MCHC 31.9 g/dL (33-37); MPV 9.7 FL (7.4-10.4); RBC 3.65 XMIL (4.2-5.4)
[2017-06-30 05:16] LABS: INR 1.45; PROTIME 15.6 Seconds (9.2-11.7)
[2017-06-30 05:26] LABS: CALCIUM 8.9 mg/dL (8.8-10.2); MAGNESIUM 1.8 mg/dL (1.5-2.7)
[2017-06-30] MEDS: PRILOSEC PO SCH (06:20)
[2017-06-30] MEDS: HUMALOG SUBQ SCH ×4 (06:21→20:03)
[2017-06-30] MEDS: ROCEPHIN 1 GM in NS 50 ML IV SCH (08:31)
[2017-06-30] MEDS: COZAAR PO SCH (08:32)
[2017-06-30] MEDS: TOPROL XL PO SCH (08:32)
[2017-06-30] MEDS: KLOR-CON PO SCH (08:32)
[2017-06-30] MEDS: ASPIRIN EC PO SCH (08:32)
[2017-06-30] MEDS: ICAR-C PO SCH ×2 (08:32→20:03)
[2017-06-30] MEDS: PERICOLACE PO SCH ×2 (08:33→20:03)
[2017-06-30] MEDS: MIRALAX PO SCH (08:33)
[2017-06-30] MEDS: ZOLOFT PO SCH (08:33)
[2017-06-30] MEDS: TYLENOL PO PRN ×2 (14:43→20:12)
[2017-06-30] MEDS: LIPITOR PO SCH (20:03)
[2017-07-01] MEDS ORDERED: CARDIZEM IV ONE (01:08)
[2017-07-01] MEDS: CARDIZEM 100 MG/NS 100 MG/100 ML IVPB IV SCH ×3 (01:25→20:43)
[2017-07-01] MEDS: LASIX IV SCH ×2 (02:36→14:22)
[2017-07-01 05:05] LABS: AGAP 12; BUN 14 mg/dL (8-22); CALCIUM 9.1 mg/dL (8.8-10.2); CHLORIDE 102 mmol/L (98-107); COSMO 280; MAGNESIUM 1.8 mg/dL (1.5-2.7); POTASSIUM 4.1 mmol/L (3.5-5.1); SODIUM 139 mmol/L (136-145); TCO2 25 mmol/L (25-35)
[2017-07-01] MEDS: PRILOSEC PO SCH (06:05)
[2017-07-01] MEDS: HUMALOG SUBQ SCH ×4 (06:09→20:43)
--- NOTE | 2017-07-01 07:09 | EKG Report ---
Test Performed on : 06/30/2017 11:43:20 PM Test Reason : significant change in heart rate Blood Pressure : / mmHG Vent. Rate : 149 BPM Atrial Rate : 145 BPM P-R Int : 000 ms QRS Dur : 070 ms QT Int : 274 ms P-R-T Axes : 000 033 033 degrees QTc Int : 431 ms Atrial fibrillation. with rapid ventricular response. Septal infarct , age undetermined Abnormal ECG When compared with ECG of 29-JUN-2017 06:40, Atrial fibrillation. has replaced Sinus rhythm. Vent. rate has increased BY 64 BPM Nonspecific T wave abnormality, improved in Inferior leads T wave inversion no longer evident in Anterior leads Unconfirmed Result
[2017-07-01] MEDS: ROCEPHIN 1 GM in NS 50 ML IV SCH (07:45)
[2017-07-01] MEDS: ZOLOFT PO SCH (07:59)
[2017-07-01] MEDS: TOPROL XL PO SCH (07:59)
[2017-07-01] MEDS: COZAAR PO SCH (07:59)
[2017-07-01] MEDS: KLOR-CON PO SCH (07:59)
[2017-07-01] MEDS: ASPIRIN EC PO SCH (08:00)
[2017-07-01] MEDS ORDERED: HEPARIN 1000 UNITS/NS 2,000 UNIT/1,000 ML IV.SOLN ONE (08:19)
[2017-07-01] MEDS ORDERED: NITROGLYCERIN ONE (08:28)
[2017-07-01] MEDS ORDERED: DILAUDID ONE (08:40)
[2017-07-01] MEDS ORDERED: VERSED ONE (08:40)
[2017-07-01] MEDS ORDERED: CLAVE TWINSITE 32 IN 11959 ONE (08:53)
[2017-07-01] MEDS ORDERED: CLAVE PUMP SET NO FILTER 12260 ONE (08:53)
[2017-07-01] MEDS ORDERED: NS 1,000 ML ONE (08:53)
[2017-07-01] MEDS ORDERED: HEPARIN 1000 UNITS/NS 1,000 UNIT/500 ML IV.SOLN ONE (09:46)
[2017-07-01] MEDS: MIRALAX PO SCH (10:38)
[2017-07-01] MEDS: PERICOLACE PO SCH ×2 (10:39→20:42)
--- NOTE | 2017-07-01 10:51 | EKG Report ---
Test Performed on : 07/01/2017 10:15:29 AM Test Reason : POST CATH Blood Pressure : / mmHG Vent. Rate : 088 BPM Atrial Rate : 286 BPM P-R Int : 000 ms QRS Dur : 084 ms QT Int : 384 ms P-R-T Axes : 000 -21 004 degrees QTc Int : 464 ms Atrial flutter. with variable AV block. Nonspecific ST and T wave abnormality Abnormal ECG When compared with ECG of 30-JUN-2017 23:44, (Unconfirmed) Vent. rate has decreased BY 73 BPM Nonspecific T wave abnormality no longer evident in Lateral leads Confirmed by Carito RODRIGUEZ, Alfredo Dueñas ([id number]) on 07/02/2017 6:40:58 AM
[2017-07-01] MEDS: ICAR-C PO SCH ×2 (11:25→20:42)
[2017-07-01 12:22] LABS: INR 1.13
[2017-07-01] MEDS ORDERED: ZOFRAN IV PRN (14:56)
[2017-07-01] MEDS: LIPITOR PO SCH (20:42)
[2017-07-02] MEDS: LASIX IV SCH (02:38)
[2017-07-02] MEDS: HUMALOG SUBQ SCH ×3 (06:08→15:50)
[2017-07-02] MEDS: PRILOSEC PO SCH (06:31)
[2017-07-02] MEDS: CARDIZEM 100 MG/NS 100 MG/100 ML IVPB IV SCH (06:31)
[2017-07-02 07:04] LABS: AGAP 15; ALBUMIN 3.7 g/dL (3.5-5.0); ALKALINE PHOSPHATASE 66 U/L (32-104); BUN 16 mg/dL (8-22); CALCIUM 9.7 mg/dL (8.8-10.2); CHLORIDE 99 mmol/L (98-107); COSMO 276; GOT 13 U/L (10-30); GPT 5 U/L (10-36); POTASSIUM 4.2 mmol/L (3.5-5.1); SODIUM 137 mmol/L (136-145); TCO2 23 mmol/L (25-35); TOTAL BILIRUBIN 0.71 mg/dL (0.20-1.00); TOTAL PROTEIN 7.4 g/dL (6.3-8.3)
--- NOTE | 2017-07-02 07:14 | Diag Imaging Result Doc PS360 ---
EXAM: CHEST-PORTABLE HISTORY: SOB TECHNIQUE: Portable upright COMPARISON: 06/29/2017 FINDINGS: No change in the right subclavian portacatheter. No pneumothorax. The lungs are well expanded. The heart is not enlarged. Pulmonary vessels are small. There are no infiltrates. No pleural effusions identified. There has been prior surgery to the right clavicle. There are surgical clips in the left axilla. IMPRESSION: Stable chest. Electronically signed by Mehrdad Trejo 07/02/2017 7:12 AM
[2017-07-02] MEDS: TOPROL XL PO SCH (08:28)
[2017-07-02] MEDS: COZAAR PO SCH (08:28)
[2017-07-02] MEDS: KLOR-CON PO SCH (08:28)
[2017-07-02] MEDS: ZOLOFT PO SCH (08:28)
[2017-07-02] MEDS: PERICOLACE PO SCH (08:28)
[2017-07-02] MEDS: MIRALAX PO SCH (08:29)
[2017-07-02] MEDS: ROCEPHIN 1 GM in NS 50 ML IV SCH (08:29)
[2017-07-02] MEDS: ASPIRIN EC PO SCH (08:29)
[2017-07-02] MEDS: ICAR-C PO SCH (08:29)
[2017-07-02] MEDS ORDERED: LASIX PO SCH (09:00)
[2017-07-02] MEDS: TYLENOL PO PRN (13:22)
[2017-07-02 16:38] VITALS: BP 104/46
[2017-07-02] MEDS ORDERED: TOPROL XL PO SCH (21:00)
[2017-07-04] MEDS ORDERED: XARELTO PO SCH (17:00)
== END 2017-07-02 17:11 ==
LOC: ED 22:37 → 3S 06-28 00:55 → SUATTDRO 06-28 00:55 → 3S 06-28 01:32
PROVIDERS: ADMIT Internal Medicine; ATTEND Internal Medicine